=== PATIENT | female | born 1955 | race Caucasian/White ===

== ENCOUNTER → 2019-11-10 07:10 | Outpatient (CLI) | payer OTHER, MEDICAID, SELFPAY ==
[2019-11-10 08:02] LABS: Hemoglobin A1C% w Est Avg Glu 5.3 % (4.0-6.0)
[2019-11-10 08:04] LABS: Add Manual Diff / Slide Review NO; Basophils Absolute Auto 0 /uL (0-100); Basophils Percent Auto 1.2 % (0-2); Eosinophils Absolute Auto 100 /uL (0-450); Eosinophils Percent Auto 3.1 % (2-4); Hematocrit 40.4 % (36-46); Hemoglobin 13.6 g/dL (12.0-16.0); Lymphocytes Absolute Auto 1700 /uL (1100-4500); Lymphocytes Percent Auto 43.3 % (25-40); Mean Corpuscular HGB Conc 33.7 % (30-36); Mean Corpuscular Hemoglobin 30.7 PG (26-34); Mean Corpuscular Volume 91.2 fL (80-100); Monocytes Absolute Auto 400 /uL (0-900); Monocytes Percent Auto 9.3 % (3-14); Neutrophils Absolute Auto 1700 /uL (1500-7000); Neutrophils Percent Auto 43.1 % (50-75); Platelet Count 192 X10^3/uL (150-400); Red Blood Cell Count 4.43 X10^6/uL (4.0-5.2); Red Cell Distribution Width 13.2 % (11.6-14.8)
[2019-11-10 08:32] LABS: Erythrocyte Sedimentation Rate 10 MM/HR (0-20)
[2019-11-10 08:35] LABS: BUN Creatinine Ratio 20.5 (6-22); Blood Urea Nitrogen 15 mg/dL (7-17); Calcium 9.8 mg/dL (8.4-10.2); Carbon Dioxide 25 mmol/L (22-32); Chloride 106 mmol/L (98-107); Estimated Glomerular Filt Rate > 60.0 mL/min (>60); Glucose 91 mg/dL (80-110); HEMOLYSIS < 15 (0-50); Potassium 4.2 mmol/L (3.4-5.1); Sodium 138 mmol/L (137-145)
== END ==
PROVIDERS: Referring Provider Orthopaedic Surgery Adult Reconstructive Orthopaedic Surgery; Visit Provider Orthopaedic Surgery Adult Reconstructive Orthopaedic Surgery
DX: Z01.818 Encounter for other preprocedural examination (principal); Z01.812 Encounter for preprocedural laboratory examination; R73.9 Hyperglycemia, unspecified
CPT/HCPCS: 36415; 80048; 83036; 85025; 85651; 93005; 93010

== ENCOUNTER → 2019-11-17 14:13 | Outpatient (CLI) | payer OTHER, MEDICAID, SELFPAY ==
[2019-11-19 01:00] LABS: COVID19 Sendout Not Detected (Not Detect)
== END ==
PROVIDERS: PCP Family Medicine; Visit Provider Nurse Practitioner
DX: Z01.812 Encounter for preprocedural laboratory examination (principal)
CPT/HCPCS: 87635

== ENCOUNTER 2019-11-20 12:47 | Inpatient (IN) | payer OTHER, MEDICAID, SELFPAY ==
[2019-11-15 08:39] VITALS: BMI 23.6
[2019-11-20] VITALS (15 sets, daily range): BP systolic 90–124; BP diastolic 55–76; PULSE 50–61; RESP 12–22; TEMP 36–36.6; O2SAT 94–100; BMI 22.8
--- NOTE | 2019-11-20 | DI.RAD.S_ITS ---
PROCEDURE: XR PELVIS 1-2V INDICATIONS: LEFT HIP, janelle to total TECHNIQUE: 1 view of the lower pelvis acquired. COMPARISON: [facility] CUAUHTEMOC Sheridan, XR PELVIS WITH LATERAL HIP LEFT, 09/22/2019, 8:51. FINDINGS: Bones: Patient is status post left hip arthroplasty revision, with hardware components in expected positions. The hip joint appears congruent. The visualized bony structures appear intact. Soft tissues: Overlying postoperative changes are noted. No suspicious soft tissue densities. IMPRESSION: Expected postsurgical change for left hip total arthroplasty. Dictated by: Andressa Pinon MD, PhD on 11/20/2019 at 18:45 Approved by: Andressa Pinon MD, PhD on 11/20/2019 at 18:45
[2019-11-20] MEDS: ACETAMINOPHEN 325 MG TABLET 975 MG PO (13:10)
[2019-11-20] MEDS: LACTATED RINGERS 1,000 ML 42 ML IV ×2 (13:11→16:35)
--- NOTE | 2019-11-20 14:19 | PM.PREOP ---
Pre-operative Note COVID-19 COVID-19 status: Negative Result date/Date tested (Pos, Neg/Pending): 11/17/19 Interval Note History & Physical reviewed/Exam performed by Physician: Yes Changes to H&P: No H&P completed within 30 days and has changed as indicated here:: Plan for conversion of left hemiathroplasty to total hip arthroplasty
[2019-11-20] MEDS: CEFAZOLIN 2 GM/100 ML FROZ.PIGGY IV ×2 (14:37→22:53)
--- NOTE | 2019-11-20 15:20 | SUR.OPER ---
Lateral on padded OR bed. Gel axillary roll. Arms secured on padded armboard with pillow supporting top arm. Padded hip positioner braces x4 - anterior and posterior chest and pelvis. Additional gel pad used anterior pelvis. Gel pad under bottom leg from knee to foot and secured with tape over sheet.
[2019-11-20] MEDS: TRANEXAMIC ACID 1,000 MG VIAL 2000 MG INJ ×2 (15:54→15:56)
[2019-11-20] MEDS: ROPIVACAINE 0.5% PF 5 MG/ML 20ML VIAL 60 ML INJ (15:59)
--- NOTE | 2019-11-20 17:43 | P.OP_ITS ---
Operative Date/Time/Diagnoses Date of procedure: 11/20/19 Time of procedure: 17:43 Pre-op diagnosis: failed left hip hemiarthroplasty Post-op diagnosis: same Procedure & Clinicians Procedure: conversion of left hip hemiarthroplasty to left total hip arthroplasty Same procedure as scheduled: Yes Indications: painful left hip hemiarthroplasty Surgeon: Francisco Robles Journeyman Lineman: Roxanne Aldana Anesthesia Type: General and MAC +/- Operative Notes Findings: left hip hemiarthroplasty with stable stem, absent cartilage at weight bearing portion of acetabulum Closure Type: non-primary Specimen(s): none sent Prosthetic devices, grafts, tissues, transplants, or devices: Niño and Nephew 56mm redapt cup 2x 25mm screws OR30 56mm OD, 44mm ID oxinium liner OR30 44mm OD, 28mm ID dual mobility liner Biolox 28mm +1.5 delta ceramic revision head Estimated Blood Loss (mL): 300 Procedure in detail: Patient was met in the preoperative holding area where the site and side of surgery were marked by MD. A discussion of the risks and benefits of surgery were discussed and informed consent was signed. All last minute questions were answered. Patient was then brought back in the operating room where she received a spinal anesthetic. She was then transferred onto the operating room table and placed in a right lateral decubitus position with all bony prominences well padded. The left lower extremity then prepped and draped in normal sterile fashion. Surgical time-out was performed verifying the site and side of surgery as well as the name of the patient. The old surgical incision was marked out and ellipsed out using 10. Blade. Electrocautery was used to gain hemostasis and dissect down to the level of ITB band and superior gluteal fascia. A osteotome was used to free up the adhesions overlying the ITB band. ID band was then incised using 10. Blade. The short external rotators had scarred down to the capsule as 1 sleeve. A L-shaped capsulotomy was performed taking down the short external rotators and the capsule as 1 sleeve. This was tagged with a FiberWire suture. A Cobra was placed underneath the gluteus medius and subsequently underneath the gluteus minimus to give good exposure. Copious scar was removed from around the femoral neck component. Once this occurred the hip was then dislocated the hemiarthroplasty head and sleeve was then removed from the trunnion using a bone tamp. Trunnion was in good condition. A osteotome was placed against the femur on the anterior cortex and used to released scar tissue from the anterior cortex of the femur. This gave better mobilization of the femur. A pocket was made anterior to the acetabulum at approximately the 11 o'clock position for placement of the stem in this pocket. The femur then shock in depth and this positions of the stem sat this pocket a curved Hohmann was then used to retract the femur anteriorly. Labrum was removed excess scar was also removed. The pulmonary our was removed giving good access to the floor the colloid fossa. We began reaming with a 48 mm Reamer up sizing by 2s until we got to 54 mm. We then reamed a 55 mm Reamer this had good fit and a 56 mm revision cup was selected due to the amount of sclerotic bone. The cup was provisionally placed and adjusted under fluoroscopic images. Two screws were then placed 25 mm in length. We began trialing initially with a standard poly and subsequent with a lateralized poly. She was stable in position of sleep and as well as flexion to about 90? with internal rotation to about 75?. We then trialed with a dual mobility which gave us a better approximation of her leg lengths as well as excellent stability and position of sleep as well as hip flexion 90? with internal rotation to about 80?. Trial components were removed Betadine solution was used to irrigate the wound this allowed to sit for 5 minutes prior to copious irrigation with normal saline. The 56 mm x 44 mm Oxinium liner was then selected and malleted into place. The 2 mobility polyethylene liner with a 20 mm revision ceramic head was press fit together this was then malleted onto the trunnion found to be stable. The hip was then reduced to final time. The capsule was repaired using a running Ethibond with a drill to drill hole to greater trochanter for 1 limb of the FiberWire suture as well as the 2nd limb of the FiberWire sutures through the abductor tendon. Local anesthetic was then injected followed by closure of the ITB band with a 1. Vicryl interrupted fashion followed by 1. Vicryl in running locking fashion the superior gluteal fascia followed by running fat layer stitch followed by 2 Vicryl in the subcutaneous layer followed by nathan on skin an Aquacel dressing. Complications: none Post-operative Condition: stable Disposition: PACU Plan for aftercare: WBAT LLE, posterior hip precautions, Lovenox 6 weeks
[2019-11-20 19:39] LABS: Add Manual Diff / Slide Review NO; Basophils Absolute Auto 0 /uL (0-100); Basophils Percent Auto 0.3 % (0-2); Eosinophils Absolute Auto 100 /uL (0-450); Eosinophils Percent Auto 0.5 % (2-4); Hematocrit 37.1 % (36-46); Hemoglobin 12.6 g/dL (12.0-16.0); Lymphocytes Absolute Auto 1400 /uL (1100-4500); Lymphocytes Percent Auto 10.3 % (25-40); Mean Corpuscular HGB Conc 33.9 % (30-36); Mean Corpuscular Hemoglobin 30.7 PG (26-34); Mean Corpuscular Volume 90.3 fL (80-100); Monocytes Absolute Auto 600 /uL (0-900); Monocytes Percent Auto 4.8 % (3-14); Neutrophils Absolute Auto 11200 /uL (1500-7000); Neutrophils Percent Auto 84.1 % (50-75); Platelet Count 180 X10^3/uL (150-400); Red Cell Distribution Width 12.8 % (11.6-14.8); White Blood Cell Count 13.3 X10^3/uL (4.5-11.0)
[2019-11-20] MEDS: LACTATED RINGERS 1,000 ML 125 ML IV (20:04)
[2019-11-20] MEDS: DOCUSATE 100 MG CAPSULE PO (20:56)
[2019-11-20] MEDS: ACETAMINOPHEN 325 MG TABLET 650 MG PO (21:15)
--- NOTE | 2019-11-20 21:38 | PC.NURSE ---
Admit/Evening SHift Note- Patient arrived to room via bed at 1840 from PACU. Admit questions done, medications and allergies reviewed, physoical assessemnt done, askin check done. dressing to left hip c/d/i. No complaints of pain or discomfort. PAtient reports slight nausea but declines any medications for nausea at this time. Oriented patient to bed and bed controls, room, bathroom, lights, phone, menu, and call brooke/tv remote. Safety measures in place. Patient agrees to call for assistance. bed alarm activated. call brooke and phone within reach. Will continue to monitor.
[2019-11-21] VITALS (10 sets, daily range): BP systolic 96–134; BP diastolic 53–78; PULSE 60–72; RESP 16–18; TEMP 36.7–37.3; O2SAT 90–100
[2019-11-21] MEDS: SODIUM CHLORIDE 0.9% 100 ML 500 ML IV (01:00)
[2019-11-21] MEDS: LACTATED RINGERS 1,000 ML 125 ML IV (01:23)
--- NOTE | 2019-11-21 03:49 | PC.NURSE ---
At approximately 0030, Pt experienced a syncopal episode while ambulating to the bathroom. Pt was returned to bed, vitals were assessed and her BP was found to be 71/32. Pt was diaphoretic and dizzy. Telemetry was placed on pt along with 2L O2 and her current fluids were run wide open. Subsequent blood pressure improved to 99/51. DrAbelardo city controller (Uyen Niño) was contacted and ordered a 500mL bolus of NS along with a 12 lead EKG due to the pt's prolonged QTc (0.514) Pt recovered quickly and rested comfortably for the reminder of shift. Q4 neuro checks remain WNL.
[2019-11-21] MEDS: ACETAMINOPHEN 325 MG TABLET 650 MG PO ×3 (04:26→21:21)
[2019-11-21 05:23] LABS: Hematocrit 34.4 % (36-46); Hemoglobin 11.8 g/dL (12.0-16.0)
[2019-11-21] MEDS: CEFAZOLIN 2 GM/100 ML FROZ.PIGGY IV (05:25)
[2019-11-21] MEDS: LEVOTHYROXINE 150 MCG TABLET PO (08:28)
[2019-11-21] MEDS: ENOXAPARIN 40 MG/0.4 ML SYRINGE SUBCUT (08:29)
[2019-11-21] MEDS: DOCUSATE 100 MG CAPSULE PO ×2 (08:29→21:21)
--- NOTE | 2019-11-21 09:19 | CM.DANOTE ---
Addendum entered by Aileen Dixon LPN 11/21/19 12:13: Met with pt after review of PT Mayelin's note. She confirms that her partner Dayo will be available to help her after d/c. Pt's PT session was cut short due to episode of lightheadedness and low BP but both pt and PT anticipate that she will do fine in the home setting once medically stable for same. Pt confirms PCP: Dr. Le, she will be seeing him for the first time in January. P: DCP team to follow prn. Expect at this time: home when stable for same. Addendum entered by Aileen Dixon LPN 11/21/19 09:29: Surgery: for a failed L hemiarthroplasty 2017 and now a total hip replacement. Original Note: Discharge Planning/Care Management DCP: assessment: case received, EMR reviewed. DC order noted with comment of when cleared by PT. PT has not yet worked with pt. Pt is a 64 year old female who admitted yesterday for a scheduled L MONIK. Payer: [facility] Admission status: INPT: confirmed by KHRIS Crouch Pt's pre-op plan states that pt does live with a significant other Jesu: [phone] and does plan for a d/c to home setting when stable for same. 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 CM Discharge Assessment Start: 11/21/19 09:15 Freq: Status: Active Protocol: Document 11/21/19 09:18 ITV (Rec: 11/21/19 09:19 ITV [id number]) Discharge Planning Assessment Advance Directives? No Advance Directives on File Yes History Provided By Medical Record Has Patient been admitted in last 30 No days? 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 Patient Information Reviewed Via Phone Assessment Assessment Completed With Patient Diagnostic Results BMP/CMP,CBC,EKG Comment Labs/EKG @ 11/10/19 - COVID screen @ 11/17/19 Primary Care Provider Justin Le Seen Specialist in Last 12 Months Yes Specialist Seen Orthopedist Primary Language Maltese Candlemaker Required No Height 180.34 cm Weight 76.657 kg Body Mass Index (BMI) 23.6 Visual Assist Glasses Dentition Type Teeth, Natural Present Barriers to Learning None Hx Anesthesia Reactions No Hx Family Anesthesia Reaction No Hx Malignant Hyperthermia No Hx Blood Transfusions No Anesthesia Review Requested No alcohol intake current alcohol intake frequency holidays/special occasions only Smoking Status Never smoker Substance Use Type does not use Pain Present Pain Reported Musculoskeletal Symptoms Abnormal Gait,Difficulty Walking,Joint Pain History of Falling (Recent or History of Yes ) Patient is completely paralyzed or No completely immobile Prosthesis or Orthotic Device Cane Mental Status Oriented to own ability Is patient on oxygen? No Does patient have CHRISTIE/SOB No Hx Sleep Apnea No Currently Taking a Beta Marilee No Can You Climb a Flight of Stairs Without Yes SOB Hx Chest Pain No Hx SOB No Hx Syncope or Dizziness No Anti-Coagulant Therapy No Has a Resolution Expert No Cardiac Testing No Hx Pacemaker/ICD No Pacemaker Rep Required? No Cardiac Clearance Received Not Applicable Diet Type At Home Gluten Free dysphagia No Urinary Catheter Present No Hx Urinary Self Catheterization No Diabetes No HgbA1C 5.3 Date 11/10/19 Patient No Lactating No Hx Drug Resistant Organism No Presence of External or Internal Medical Yes: Left hip hardware Devices Have you had any close contact with No someone diagnosed with COVID-19? Marital Status Single Lives With significant other Prior Living Arrangements House Number of Floors (Floors) One Floor Support System Friend(s),Spouse Does the Patient Have Assistance After Yes Surgery Patient Discharge Plan Description Return Home Comment Pt not advised on length of stay per surgeon Feels Safe in Current Environment Yes Been Physically Hurt or Threatened By a No Person in Current Environment Do you have thoughts of harming yourself None or others? Are you currently considering suicide? No Do you have a plan to hurt yourself or No Plan others? Do You Have Any Spiritual Beliefs That No May Affect Your HC Choices? Do You Have Any Cultural Practices That No May Affect Your HC Choices? Who Can We Speak to About Patient's Care Family, friends Identifying Code for Release of Patient Declines to issue Information Health Care Proxy/Next of Kin Dayo (S.O.) Allison (sister) Health Care Proxy Phone Number Jesu: [phone] Allison: [phone] Emergency Contact Name Dayo (S.O.) Allison (sister) Emergency Contact Phone Number Jesu: [phone] Allison: Advance Directives? Yes Advance Directives on File Yes Power of Transition Manager Yes Power of Transition Manager Name Dayo (S.O.) Allison (sister) Power of Transition Manager Phone Number [facility]: [phone] Allison: PAC Instructions Do not shave/clip surgical site,Durable medical equipment ,Medications to take/avoid, Nasal antibiotic,No ETOH/ petroleum product on skin DOS, NPO,Pre-surgical wash,Sturdy shoes/comfortable clothes,Do not bring valuables and remove jewelry
--- NOTE | 2019-11-21 10:24 | PT.IIE ---
Current Diagnoses Pain due to internal orthopedic prosthetic devices, implants and grafts, initial encounter (11/20/19) Surgery Performed Operation Date: 11/20/19 14:15 Actual Procedures p Christiano hip to Total Hip Arthroplasty(Left) - Francisco Robles MD Surgical History (Last Updated 11/16/19 @ 21:29 by Blanka Olmstead) Anesthesia (Resolved) History of left hip hemiarthroplasty (Acute 06/12/17) Hx of tonsillectomy (Acute ~1961) Medical History (Last Updated 11/16/19 @ 21:29 by Blanka Olmstead) Ankle pain (Chronic) Chicken pox (Resolved) Herpes (Resolved ~1995) Hx of migraine headaches (Acute) Left hip pain (Chronic ~03/2019) Measles (Resolved) Migraines (Chronic ~1978) Mumps (Resolved) Plantar warts (Inactive ~2013) Shoulder pain (Inactive ~1995) Wears glasses (Chronic) Physical Therapy Inpatient Evaluation/Re-Eval M1 PT/OT-IP Prior Functional Status Start: 11/21/19 08:36 Freq: NEEDED Status: Active Protocol: Document 11/21/19 10:06 AW (Rec: 11/21/19 10:24 AW [id number]) Medical Review Prior Functional Status Medical History Reviewed Yes Communication WNL. Pt is an effective verbal communicator. 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 Mobility and Gait Pt was able to walk 10 minutes without a cane in the past few months. She is an avid hiker at baseline. Activities of Daily Living and IADL's Indpendent Social History Household Members significant other Living Arrangements House Number of Floors (Floors) One Floor Number of Stairs To Enter/Railing? 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 Her partner is able and will be available to assist after surgery. M2 PT-IP Current Condition Start: 11/21/19 08:36 Freq: NEEDED Status: Active Protocol: Document 11/21/19 10:06 AW (Rec: 11/21/19 10:24 AW [id number]) Physical Therapy Current Condition Current Condition Evaluation Date 11/21/19 Treatment Diagnosis L MONIK with posterior approach; difficulty in walking Onset Date 11/20/19 Precautions Posterior Hip Precautions No Hip Flexion > 90 degrees,No Hip Internal Rotation,No Hip Adduction M3 PT-IP Subjective Start: 11/21/19 08:36 Freq: NEEDED Status: Active Protocol: Document 11/21/19 10:06 AW (Rec: 11/21/19 10:24 AW [id number]) Subjective Physical Therapy Visit Type Type Initial Evaluation Visit Start Time 09:17 Visit Stop Time 09:40 Total Visit Minutes 23 Physical Therapy Visit Comments Patient Comments Pt is willing to participate with PT Therapy Pain Assessment Pain When Pain Assessed At Rest Pain Present Pain Present Pain Reported Location Left Hip Intensity 6 Pain Management Techniques Re-positioning,Timing of Activity with Medications M4 PT-IP Mobility and Gait Start: 11/21/19 08:36 Freq: NEEDED Status: Active Protocol: Document 11/21/19 10:06 AW (Rec: 11/21/19 10:24 AW [id number]) PT-Transfer Assessment Sit to and From Stand Sit to and from Stand Contact Guard Assistance,Use of Upper Extremities Equipment Transfer Assistive Device Gait Belt,Front Wheeled Walker Transfers Transfer Destination Chair Transfer Technique Stand Step Pivot Transfer Ability Level of Assist Contact Guard Assistance,Use of Upper Extremities Comments Mobility Comments Pt was sitting on the BSC with HEAD PIECE ASSEMBLER when therapy arrived. BP sitting on the commode was 85/ 54 HR 70. Pt denied lightheadedness. She stood from the commode CGA using FWW and side stepped to the chair where she sat CGA with good attention to posterior hip precautions. BP after transfer was 107/58 HR 61. Pt sat reclined as PT collected home information. Pt stood from the chair CGA and immediately became pale and diaphoretic. PT was unable to obtain standing BP as pt needed to sit and recline immediately. BP sitting was 85/55 HR 63 which recovered to 98/57 HR 66 after 4 minutes reclined. Pt was positioned in the chair with call light and all needs in reach. PT notified RN of pt 's BP. Gait Assessment Comments Gait Comments Transfer only due to low BP. Stair Climbing Assessment Comments Stair Climbing Comments Not assessed. PT-Balance Assessment Sitting Balance and Reactions Static Sitting Balance Ability Normal Dynamic Sitting Balance Ability Normal Standing Balance and Reactions Static Standing Balance Ability Fair Device Used FWW M5 PT-IP Objective Assessments Start: 11/21/19 08:36 Freq: NEEDED Status: Active Protocol: Document 11/21/19 10:06 AW (Rec: 11/21/19 10:24 AW [id number]) Orientation Orientation/Cognition Level of Alertness Alert Orientation Name,Day of Week,Place, Situation Language Function Ability No Deficits Noted Safety Awareness Understands Safety Issues Memory Description No Deficits Noted Gross Range of Motion Lower Extremity ROM Assessment Left Impaired Strength Lower Extremity Strength Assessment Left Impaired Hip 3/5 Knee 4/5 Ankle 5/5 Comments Strength Comments R LE grossly 5/5 Coordination Assessment Gross Coordination Gross Coordination WNL Sensation Assessment Sensation Gross Sensation WNL Muscle Tone Muscle Tone WNL Yes M6 PT-IP Treatment Start: 11/21/19 08:36 Freq: NEEDED Status: Active Protocol: Document 11/21/19 10:06 AW (Rec: 11/21/19 10:24 AW [id number]) Physical Therapy Treatment Exercises Exercises Ankle Pumps,Gluteal Sets,Quad Sets,Heel Slides Education Education Provided Precautions,Weight Bearing Status,Post-Op Packet,Safety Other Treatments Other Treatment Performed Provided education on role of PT, plan of care, posterior hip precautions. Pt verbalizes understanding of all precautions. M7 PT-IP Assessment and Plan Start: 11/21/19 08:36 Freq: NEEDED Status: Active Protocol: Document 11/21/19 10:06 AW (Rec: 11/21/19 10:24 AW [id number]) PT Summary Assessment and Plan Potential Rehabilitation Potential Excellent Status of Condition at Evaluation Evolving Summary Impairments Pain,ROM,Strength,Balance,Bed Mobility,Transfers,Gait, Activity Tolerance Assessment Summary Blanka is an active 64 yo woman seen for PT evaluation on POD1 following L MONIK with posterior approach. She is modified indepenent at baseline with use of a cane after ~10 minutes ambulation. Evaluation was limited due to pt's hemodynamic response to minimal activity. Pt is expected to meet the functional goals of this plan of care and be safe to discharge home with assist and outpatient PT once medically cleared. Goals Bed Mobility Goal Standby Assistance Transfer Goal Standby Assistance,Front Wheeled Walker Gait Goal Standby Assistance,Front Wheel Walker Gait Distance 200 Other Goals - up/down 2 steps with L rail SBA Days to Meet Goals 2 Frequency of Treatment Frequency Of Treatment Twice a Day Treatment Plan Physical Therapy Treatment Plan Bed Mobility Training,Transfer Training,Gait Training, Therapeutic Exercise,Balance Retraining,Post Op Education, Discharge Planning,Hot or Cold Pack,Neuromuscular Re-ed, Coordination Retraining,Manual Therapy Recommendations To Nursing Amount of Assist Needed 1 Person Assist Discharge Recommendations PT Discharge Recommendations Home with Assistance, Outpatient PT Transportation Needs at Discharge Private Vehicle
--- NOTE | 2019-11-21 13:44 | PT.IPTN ---
Current Diagnoses Pain due to internal orthopedic prosthetic devices, implants and grafts, initial encounter (11/20/19) Surgery Performed Operation Date: 11/20/19 14:15 Actual Procedures p Christiano hip to Total Hip Arthroplasty(Left) - Francisco Robles MD Physical Therapy Treatment Note M2 PT-IP Current Condition Start: 11/21/19 08:36 Freq: NEEDED Status: Active Protocol: Document 11/21/19 10:06 AW (Rec: 11/21/19 10:24 AW [id number]) Physical Therapy Current Condition Current Condition Evaluation Date 11/21/19 Treatment Diagnosis L MONIK with posterior approach; difficulty in walking Onset Date 11/20/19 Precautions Posterior Hip Precautions No Hip Flexion > 90 degrees,No Hip Internal Rotation,No Hip Adduction M3 PT-IP Subjective Start: 11/21/19 08:36 Freq: NEEDED Status: Active Protocol: Document 11/21/19 13:09 CLB (Rec: 11/21/19 16:23 CLB [id number]) Subjective Physical Therapy Visit Type Type Treatment Note Visit Start Time 13:09 Visit Stop Time 13:44 Total Visit Minutes 35 Number of SERVICE CASHIER Visits 1 Physical Therapy Visit Comments Patient Comments Pt is willing to participate with PT Therapy Pain Assessment Pain When Pain Assessed At Rest Pain Present Pain Present Pain Reported Location Left Hip Intensity 5 Pain Management Techniques Re-positioning,Timing of Activity with Medications M4 PT-IP Mobility and Gait Start: 11/21/19 08:36 Freq: NEEDED Status: Active Protocol: Document 11/21/19 13:09 CLB (Rec: 11/21/19 16:23 CLB [id number]) PT-Transfer Assessment Sit to and From Stand Sit to and from Stand Contact Guard Assistance,Use of Upper Extremities Equipment Transfer Assistive Device Gait Belt,Front Wheeled Walker Transfers Transfer Destination Chair Transfer Technique Stand Step Pivot Transfer Ability Level of Assist Contact Guard Assistance,Use of Upper Extremities Comments Mobility Comments Pt in chair upon arrival. Pt BP in sitting 117/65, HR 68. Pt stood CGA BP in standing 90 /55, HR 83 pt denied dizziness or lightheadedness, pt agreeabe to ambulate with WC follow. Pt ambulated in reina ~ 200ft w/FWW/CGA with step to gait step through gait pattern and cues not to get too close to from of walker, pt able to correct with cuing. Once back in room pt stated she felt fatigued, BP in standing after activity 85/54, HR 81, pt sat in chair and reclined to supine position, BP after 2 minutes BP 108/56, HR 62. Pt performed HS, QS, GS and hip abd. Pt left in reclined chair with call light and all other needs within reach. RN informed of pts BP and mobility. Gait Assessment Gait Gait Assistance Required: Contact Guard Assist,1 Person Assist Distance (Feet) 200 Able to Maintain Weight Bearing Status Yes During Gait Assistive Devices Assistive Device Gait Belt,Front Wheeled Walker Orthotic/Prosthetic Devices or Brace: No Gait Deviations General Gait Pattern Antalgic,Decreased Stride Length,Decreased Feet Clearance Factors Limiting Gait Function Factors Limiting Gait Function Decreased Activity Tolerance, Decreased Strength,Limited Range of Motion,Pain,Poor Balance Comments Gait Comments please see mobility comments Stair Climbing Assessment Comments Stair Climbing Comments Not assessed. PT-Balance Assessment Sitting Balance and Reactions Static Sitting Balance Ability Normal Dynamic Sitting Balance Ability Normal Standing Balance and Reactions Static Standing Balance Ability Fair Device Used FWW M5 PT-IP Objective Assessments Start: 11/21/19 08:36 Freq: NEEDED Status: Active Protocol: Document 11/21/19 10:06 AW (Rec: 11/21/19 10:24 AW [id number]) Orientation Orientation/Cognition Level of Alertness Alert Orientation Name,Day of Week,Place, Situation Language Function Ability No Deficits Noted Safety Awareness Understands Safety Issues Memory Description No Deficits Noted Gross Range of Motion Lower Extremity ROM Assessment Left Impaired Strength Lower Extremity Strength Assessment Left Impaired Hip 3/5 Knee 4/5 Ankle 5/5 Comments Strength Comments R LE grossly 5/5 Coordination Assessment Gross Coordination Gross Coordination WNL Sensation Assessment Sensation Gross Sensation WNL Muscle Tone Muscle Tone WNL Yes M6 PT-IP Treatment Start: 11/21/19 08:36 Freq: NEEDED Status: Active Protocol: Document 11/21/19 13:09 CLB (Rec: 11/21/19 16:23 CLB [id number]) Physical Therapy Treatment Exercises Exercises Ankle Pumps,Gluteal Sets,Quad Sets,Heel Slides Education Education Provided Precautions,Weight Bearing Status,Post-Op Packet,Safety Other Treatments Other Treatment Performed pt recalled 3/3 precautions M7 PT-IP Assessment and Plan Start: 11/21/19 08:36 Freq: NEEDED Status: Active Protocol: Document 07/21/20 13:09 CLB (Rec: 11/21/19 16:23 CLB [id number]) PT Summary Assessment and Plan Potential Status of Condition at Evaluation Evolving Summary Impairments Pain,ROM,Strength,Balance,Bed Mobility,Transfers,Gait, Activity Tolerance Assessment Summary Pt ambulated ~200ft with decrease in BP after activity with minor complaint of lightheadedness. Pt is able to recall 3/3 posterior hip precautions and perform theraputic exercises. Pt uses a small step through gait pattern requiring cues for walker use. Pt will need stair training before discharge. Goals Bed Mobility Goal Standby Assistance Transfer Goal Standby Assistance,Front Wheeled Walker Gait Goal Standby Assistance,Front Wheel Walker Gait Distance 200 Other Goals - up/down 2 steps with L rail SBA Days to Meet Goals 2 Frequency of Treatment Frequency Of Treatment Twice a Day Treatment Plan Physical Therapy Treatment Plan Bed Mobility Training,Transfer Training,Gait Training, Therapeutic Exercise,Balance Retraining,Post Op Education, Discharge Planning,Hot or Cold Pack,Neuromuscular Re-ed, Coordination Retraining,Manual Therapy Other Recommendations and Next Treatment monitor BP, ambulation, bed Focus mobility and stair training. Recommendations To Nursing Amount of Assist Needed 1 Person Assist Discharge Recommendations PT Discharge Recommendations Home with Assistance, Outpatient PT Transportation Needs at Discharge Private Vehicle
--- NOTE | 2019-11-21 14:43 | PM.PN.1 ---
Subjective Subjective Date Patient Seen: 11/21/19 Time Patient Seen: 14:43 Interval history: Patient is POD#1 from conversion of left hip hemiarthroplasty to total hip arthroplasty. Overall doing well. Lightheaded with PT Exam Vital Signs (past 8 hours): - 11/21/19 07:37 11/21/19 09:08 11/21/19 11:40 Temperature 98.2 F 98.0 F Pulse Rate 66 63 64 Respiratory Rate 16 16 16 Blood Pressure 110/53 L 96/59 L Pulse Oximetry 96 99 95 Oxygen Delivery Method Room Air Oxygen Flow Rate 0 Narrative Exam Narrative: NV intact LLE, dressing c/d/i Objective Labs Result Diagrams: 11/21/19 04:45 Labs: Laboratory Results - last 24 hr 11/20/19 11/21/19 19:29 04:45 WBC 13.3 H RBC 4.10 Hgb 12.6 11.8 L Hct 37.1 34.4 L MCV 90.3 MCH 30.7 MCHC 33.9 RDW 12.8 Plt Count 180 Neut % (Auto) 84.1 H Lymph % (Auto) 10.3 L [place] % (Auto) 4.8 Eos % (Auto) 0.5 L Baso % (Auto) 0.3 Neut # (Auto) 61346 H Lymph # (Auto) 1400 [place] # (Auto) 600 Eos # (Auto) 100 Baso # (Auto) 0 Assessment & Plan Assessment & Plan narrative: Patient is POD#1 from conversion of left hip hemiarthroplasty to total hip arthroplasty. Patient has not yet cleared PT (stairs) due to lightheadedness. - continue PT - Posterior hip precautions - WBAT LLE - Lovenox 40mg subQ for DVT prophylaxis Quality VTE Deep Vein Thrombosis/Pulmonary Embolism Present on Admission: No
--- NOTE | 2019-11-21 14:48 | PC.NURSE ---
Day shift note: Patient up out of bed with PT, 1PA FWW, ambulating well in hallway, however noted with dizziness 2-4 minutes after ambulating. Hypotension noted standing, Recovers at rest. Has not done stair training due to symptom. Excellent PO intake, voided 1400ml this shift. Encouraging fluids. Notified Dr. Robles.
[2019-11-22] VITALS: BP 111/57; PULSE 65; RESP 16; TEMP 36.8; O2SAT 98
[2019-11-22] MEDS: TRAMADOL 50 MG TABLET PO (00:28)
[2019-11-22] MEDS: OXYCODONE IR 5 MG TABLET PO ×2 (01:54→09:16)
[2019-11-22 06:00] VITALS: BP 103/56; PULSE 60; RESP 18; TEMP 37.1; O2SAT 98
[2019-11-22] MEDS: ACETAMINOPHEN 325 MG TABLET 650 MG PO ×2 (06:01→11:50)
[2019-11-22] MEDS: LEVOTHYROXINE 150 MCG TABLET PO (07:48)
[2019-11-22] MEDS: ENOXAPARIN 40 MG/0.4 ML SYRINGE SUBCUT (07:50)
--- NOTE | 2019-11-22 07:50 | PM.PN.1 ---
Subjective Subjective Date Patient Seen: 11/22/19 Time Patient Seen: 07:50 Interval history: Patient is POD#2 from conversion of left hip hemiarthroplasty to total hip arthroplasty. Overall doing well. Lightheaded with PT Exam Vital Signs (past 8 hours): - 11/22/19 00:00 11/22/19 06:00 Temperature 98.2 F 98.8 F Pulse Rate 65 60 Respiratory Rate 16 18 Blood Pressure 111/57 L 103/56 L Pulse Oximetry 98 98 Oxygen Delivery Method Room Air Oxygen Flow Rate 0 Narrative Exam Narrative: NV intact LLE, Dressing c/d/i Objective Labs Result Diagrams: 11/21/19 04:45 Assessment & Plan Assessment & Plan narrative: Patient is POD#2 from conversion of left hip hemiarthroplasty to total hip arthroplasty. Patient has not yet cleared PT (stairs) due to lightheadedness. - continue PT - Posterior hip precautions - WBAT LLE - Lovenox 40mg subQ for DVT prophylaxis Time Spent With Patient Time with patient: less than 15 minutes Quality VTE Deep Vein Thrombosis/Pulmonary Embolism Present on Admission: No
[2019-11-22] MEDS: DOCUSATE 100 MG CAPSULE PO (07:51)
--- NOTE | 2019-11-22 07:51 | PM.DS.1 ---
History of Present Illness History of Present Illness Date Patient Seen: 11/22/19 Time Patient Seen: 07:51 Chief complaint: LT MONIK Narrative: Now POD#2 from conversion of hemiarthropalsty to left MONIK Discharge Providers Provider Date of admission: 11/20/19 12:47 Discharge Date: 11/22/19 Primary care physician: Justin Le DO Consults: 11/20/19 07:53 Consult to Anesthesiology Routine Comment: Consulting Provider: Anesthesiologist Reason for consultation: Regional block for post operative pain control 11/20/19 18:43 Consult to Discharge Planning Routine Comment: Consult to Physical Therapy Evaluate & Treat Comment: Physician Instructions: post op MONIK protocol Consult to Respiratory Therapy Evaluate & Treat Comment: Physician Instructions: Evaluate and treat Discharge provider: Francisco Robles MD Summary Hospital Course Discharge Diagnosis: s/p conversion of hemiarthroplasty to MONIK Hospital Course: Admitted for conversion of janelle to MONIK. Now POD#2. Post-op PT course slowed due to lightheadedness while working with PT. Otherwise doing well. Status at Discharge Cognitive/behavioral status at discharge: oriented Overall status at discharge: patient is progressing back to baseline Time Spent with Patient Time spent: Less than 30 minutes Exam Vital Signs (past 8 hours): - 11/22/19 00:00 11/22/19 06:00 Temperature 98.2 F 98.8 F Pulse Rate 65 60 Respiratory Rate 16 18 Blood Pressure 111/57 L 103/56 L Pulse Oximetry 98 98 Oxygen Delivery Method Room Air Oxygen Flow Rate 0 Narrative Exam Narrative: NV intact LLE. Dressing c/d/i Objective Labs Result Diagrams: 11/21/19 04:45 Discharge Assessment & Plan Assessment and Plan Assessment: Patient is POD#2 from conversion of left janelle to MONIK. Doing well Plan of Treatment: DC home when cleared by PT Discharge Plan Discharge Plan Patient Disposition: Home Discharge comment: DC when cleared by PT Discharge orders & Medications Prescriptions: Continued levothyroxine 112 MCG tablet 150 mcg PO DAILY Qty: 0 RF: 0 sumatriptan succinate [Imitrex] 25 MG tablet 50 mg PO PRN MDD 4 tabs daily PRN (Reason: Migraine Headache) Qty: 0 RF: 0 Follow up/Referrals: Francisco Robles MD [Physician] - 2 Weeks Justin Le DO [Primary Care Provider] - Diet/Activity/Treatments Diet: Regular Activity: WBAT LLE, posterior hip precautions Cold/Heat Therapy: ICE as needed to control pain and swelling. Place a towel between ice and skin to avoid johnson Other treatments: Take Lovenox as prescribed for 6 weeks Skin/Wound/Dressing Care Dressing: Leave dressing in place until you are seen at your first post-op appointment Other wound treatment: OK to shower over your dressing. Do not soak (bathe). Visit Report/Discharge Packet Instructions: DI for Hip Replacement, DI for Prescription Opioid Use Visit Report Forms: Patient Portal/API, Stroke Signs & Symptoms Discharge Data Primary Care Provider: Justin Le VTE Deep Vein Thrombosis/Pulmonary Embolism Present on Admission: No
[2019-11-22 07:55] VITALS: BP 119/62; PULSE 60; RESP 18; TEMP 36.8; O2SAT 99
--- NOTE | 2019-11-22 09:44 | PT.IPTN ---
Current Diagnoses Pain due to internal orthopedic prosthetic devices, implants and grafts, initial encounter (11/20/19) Surgery Performed Operation Date: 11/20/19 14:15 Actual Procedures p Christiano hip to Total Hip Arthroplasty(Left) - Francisco Robles MD Physical Therapy Treatment Note M2 PT-IP Current Condition Start: 11/21/19 08:36 Freq: NEEDED Status: Discharge Protocol: Document 11/21/19 10:06 AW (Rec: 11/21/19 10:24 AW [id number]) Physical Therapy Current Condition Current Condition Evaluation Date 11/21/19 Treatment Diagnosis L MONIK with posterior approach; difficulty in walking Onset Date 11/20/19 Precautions Posterior Hip Precautions No Hip Flexion > 90 degrees,No Hip Internal Rotation,No Hip Adduction M3 PT-IP Subjective Start: 11/21/19 08:36 Freq: NEEDED Status: Discharge Protocol: Document 11/22/19 09:18 TP (Rec: 11/22/19 13:46 TP [email or web address]) Subjective Physical Therapy Visit Type Type Treatment Note Visit Start Time 09:18 Visit Stop Time 09:44 Total Visit Minutes 26 Notes MACHINE ASSEMBLER SUPERVISOR Shawna and student MACHINE ASSEMBLER SUPERVISOR Evonne present for tx. Number of MACHINE ASSEMBLER SUPERVISOR Visits 2 Physical Therapy Visit Comments Patient Comments Pt is willing to participate with PT Therapy Pain Assessment Pain When Pain Assessed At Rest Pain Present Pain Present Denied Pain M4 PT-IP Mobility and Gait Start: 11/21/19 08:36 Freq: NEEDED Status: Discharge Protocol: Document 11/22/19 09:18 TP (Rec: 11/22/19 13:46 TP [email or web address]) PT-Bed Mobility Assessment Sit to Supine Sit to Supine Independent Scooting Scooting to Edge of Bed Independent PT-Transfer Assessment Sit to and From Stand Sit to and from Stand Standby Assistance,Use of Upper Extremities Equipment Transfer Assistive Device Gait Belt,Front Wheeled Walker Orthotic/Prosthetic Devices or Brace: No Transfers Transfer Destination Bed,Chair Transfer Technique Stand Step Pivot Transfer Ability Level of Assist Standby Assistance,Use of Upper Extremities Comments Mobility Comments Pt in chair upon arrival. Denied pain and lightheadedness. Pt gave verbal description of hip precautions for posterior approach, with good understanding. Transfer from sit<>stand using FWW SBA, no verbal cues needed to maintain precuations. Pt ambulation into hallway and to stairs, approximately 200ft with FWW CGA. Verbal cues needed for flexion of L knee and use of step through gait pattern. Pt education for proper use of SPC ascending and descending stairs. Ascended and descended 3 stairs with with L handrail and SPC in R hand. Ambulation to return to room approximately 200ft with FWW SBA, total of 400ft without a seated rest using FWW. FWW lowered one position to improve posture. Pt performed sit<>stand at chair FWW SBA. Pt demonstrated step pivot transfer while maintaining hip precautions to sit at EOB, FWW SBA. Sit to supine performed independently. Ther ex in supine: B ankle pumps x 10, quad sets x 5, glute sets x 5, heel slides x 5. Education for use of gait belt looped around L foot to provide assistance in mobilizing left leg, particularly for hip abduction exercises and moving from supine to sit. Pt ambulated to chair with FWW SBA and performed sit<>stand. Pt requested a grabber for use at home to pick things up off the floor while maintaining hip flexion precautions. Pt reclined in chair with ice on L hip, call light in reach, and all needs met at completion of tx. Nursing notified of pt's condition and desire to shower. Gait Assessment Gait Gait Assistance Required: Standby Assistance,1 Person Assist Distance (Feet) 400 Able to Maintain Weight Bearing Status Yes During Gait Assistive Devices Assistive Device Gait Belt,Front Wheeled Walker Orthotic/Prosthetic Devices or Brace: No Gait Deviations General Gait Pattern Antalgic,Decreased Stride Length,Decreased Feet Clearance Factors Limiting Gait Function Factors Limiting Gait Function Decreased Activity Tolerance, Decreased Strength,Limited Range of Motion,Pain,Poor Balance Comments Gait Comments See mobility comments. Pt able to ambulate approximately 400ft with FWW SBA with verbal cues intially for step through gait pattern. Stair Climbing Assessment Evaluation Level of Assist On Stairs Contact Guard Assistance,1 Person Assistance Devices Stair Climbing Assistive Devices Straight Cane Technique/Endurance Stair Climbing Direction Ascend and Descend Stair Climbing Technique Step to Step Number of Steps Climbed 3 Stair Climbing Set # Repetitions (reps) 1 Comments Stair Climbing Comments See mobility comments. Pt ascended and descended 3 steps with use of L handrail and SPC in R hand. Education provided for use of SPC on stairs. Pt demonstrated good understanding. PT-Balance Assessment Sitting Balance and Reactions Static Sitting Balance Ability Normal Dynamic Sitting Balance Ability Normal Standing Balance and Reactions Static Standing Balance Ability Good Device Used FWW M5 PT-IP Objective Assessments Start: 11/21/19 08:36 Freq: NEEDED Status: Discharge Protocol: Document 11/21/19 10:06 AW (Rec: 11/21/19 10:24 AW [id number]) Orientation Orientation/Cognition Level of Alertness Alert Orientation Name,Day of Week,Place, Situation Language Function Ability No Deficits Noted Safety Awareness Understands Safety Issues Memory Description No Deficits Noted Gross Range of Motion Lower Extremity ROM Assessment Left Impaired Strength Lower Extremity Strength Assessment Left Impaired Hip 3/5 Knee 4/5 Ankle 5/5 Comments Strength Comments R LE grossly 5/5 Coordination Assessment Gross Coordination Gross Coordination WNL Sensation Assessment Sensation Gross Sensation WNL Muscle Tone Muscle Tone WNL Yes M6 PT-IP Treatment Start: 11/21/19 08:36 Freq: NEEDED Status: Discharge Protocol: Document 11/22/19 09:18 TP (Rec: 11/22/19 13:46 TP [email or web address]) Physical Therapy Treatment Exercises Exercises Ankle Pumps,Gluteal Sets,Quad Sets,Heel Slides Education Education Provided Precautions,Weight Bearing Status,Post-Op Packet,Safety Other Treatments Other Treatment Performed Pt recalled 3/3 precautions. Dispensed grabber for use at home to maintain hip precautions while retrieving items on floor. M7 PT-IP Assessment and Plan Start: 11/21/19 08:36 Freq: NEEDED Status: Discharge Protocol: Document 11/22/19 09:18 TP (Rec: 11/22/19 13:46 TP [id number]) PT Summary Assessment and Plan Potential Rehabilitation Potential Excellent Status of Condition at Evaluation Evolving Summary Impairments Pain,ROM,Strength,Balance,Bed Mobility,Transfers,Gait, Activity Tolerance Assessment Summary Pt ambulated ~400ft without pain or lightheadedness. Pt improved gait pattern to step through with use of FWW SBA. Pt demonstrates good recall and understanding of hip precautions, including during turns and pivots while ambulating. Pt able to complete all bed mobility and ther ex independently. Pt is ready to discharge home with assistance and recommending outpatient PT. Goals Bed Mobility Goal Standby Assistance Transfer Goal Standby Assistance,Front Wheeled Walker Gait Goal Standby Assistance,Front Wheel Walker Gait Distance 200 Other Goals - up/down 2 steps with L rail SBA Days to Meet Goals 2 Frequency of Treatment Frequency Of Treatment Twice a Day Treatment Plan Physical Therapy Treatment Plan Bed Mobility Training,Transfer Training,Gait Training, Therapeutic Exercise,Balance Retraining,Post Op Education, Discharge Planning,Hot or Cold Pack,Neuromuscular Re-ed, Coordination Retraining,Manual Therapy Other Recommendations and Next Treatment Pt is ready to discharge home Focus with assistance and recommending outpatient PT. Recommendations To Nursing Amount of Assist Needed Standby Assistance Discharge Recommendations PT Discharge Recommendations Home with Assistance, Outpatient PT Transportation Needs at Discharge Private Vehicle
--- NOTE | 2019-11-22 11:51 | PC.NURSE ---
Pt is showered and dressed and ready for discharge home with Spouse who will be here at 1300. Went over d/c instructions-discussed d/c meds, reviewed Lovenox injection technique, stroke education, posterior hip precautions and follow up. Gave Pt Tylenol for pain. Encouraged fluid intake to prevent constipation or dehydration. Pt denies further questions and will be taken out to POV via w/c when spouse arrives.
== END 2019-11-22 13:25 | disposition home or self-care (01) | DRG 301 ==
PROVIDERS: Admitting Provider Orthopaedic Surgery Adult Reconstructive Orthopaedic Surgery; PCP Family Medicine; Referring Provider Family Medicine; Visit Provider Orthopaedic Surgery Adult Reconstructive Orthopaedic Surgery
PROC: 0SRB0JZ Replacement of Left Hip Joint with Synthetic Substitute, Open Approach (ICD-10-PCS; CPT 27130; principal; 2019-11-20 14:15)
DX: T84.091A Other mechanical complication of internal left hip prosthesis, initial encounter (principal); T84.84XA Pain due to internal orthopedic prosthetic devices, implants and grafts, initial encounter; R42 Dizziness and giddiness
CPT/HCPCS: 36415; 72170; 76000; 85014; 85018; 85025; 93005; 94760; 97110; 97116; 97161; 97530; C1776; J0690; J1650; J2250; J2704; J3010

== ENCOUNTER → 2020-01-23 07:17 | Outpatient (CLI) | payer OTHER, MEDICAID, SELFPAY ==
[2019-11-20 13:03] VITALS: BMI 22.8
[2020-01-23 09:05] LABS: Add Manual Diff / Slide Review NO; Basophils Absolute Auto 0 /uL (0-100); Basophils Percent Auto 1.1 % (0-2); Eosinophils Absolute Auto 200 /uL (0-450); Eosinophils Percent Auto 3.9 % (2-4); Hematocrit 40.8 % (36-46); Hemoglobin 13.8 g/dL (12.0-16.0); Lymphocytes Absolute Auto 1700 /uL (1100-4500); Mean Corpuscular Hemoglobin 30.6 PG (26-34); Mean Corpuscular Volume 90.2 fL (80-100); Monocytes Absolute Auto 300 /uL (0-900); Neutrophils Absolute Auto 1900 /uL (1500-7000); Platelet Count 187 X10^3/uL (150-400); Red Blood Cell Count 4.52 X10^6/uL (4.0-5.2); Red Cell Distribution Width 13.3 % (11.6-14.8); White Blood Cell Count 4.1 X10^3/uL (4.5-11.0)
[2020-01-23 09:13] LABS: Fibrinogen 275 mg/dL (211-428)
[2020-01-23 09:21] LABS: Alanine Aminotransferase 29 IU/L (<35); Albumin 4.4 g/dL (3.5-5.0); Albumin Globulin Ratio 1.6 (1.0-2.8); Alkaline Phosphatase 72 U/L (38-126); Aspartate Aminotransferase 32 IU/L (14-36); BUN Creatinine Ratio 22.2 (6-22); Bilirubin Total 0.7 mg/dL (0.2-1.3); Blood Urea Nitrogen 16 mg/dL (7-17); Calcium 9.6 mg/dL (8.4-10.2); Carbon Dioxide 28 mmol/L (22-32); Chloride 107 mmol/L (98-107); Cholesterol 239 mg/dL (140-199); Estimated Glomerular Filt Rate > 60.0 mL/min (>60); Globulin 2.8 g/dL (1.7-4.1); Glucose 86 mg/dL (80-110); HDL Cholesterol 62 mg/dL (40-60); HEMOLYSIS < 15 (0-50); LDL Cholesterol Calculated 163 mg/dL (<100); Potassium 4.5 mmol/L (3.4-5.1); Sodium 142 mmol/L (137-145); Total Protein 7.2 g/dL (6.3-8.2); Triglycerides 70 mg/dL (35-150)
[2020-01-23 09:24] LABS: C-Reactive Protein Quant < 0.5 mg/dL (<1.0)
[2020-01-23 09:37] LABS: Free T3, Triiodothyronine Free 3.08 pg/mL (2.77-5.27)
[2020-01-23 09:50] LABS: Thyroid Stimulating Hormone 1.22 uIU/mL (0.47-4.68)
[2020-01-23 09:54] LABS: Ferritin 57 ng/mL (11-264)
[2020-01-24 07:18] LABS: Insulin Level Total 6.5 uIU/mL (2.6-24.9)
== END ==
PROVIDERS: PCP Family Medicine; Referring Provider Family Medicine; Visit Provider Family Medicine
DX: D50.0 Iron deficiency anemia secondary to blood loss (chronic) (principal); E03.9 Hypothyroidism, unspecified; G43.909 Migraine, unspecified, not intractable, without status migrainosus; Z13.220 Encounter for screening for lipoid disorders
CPT/HCPCS: 36415; 80053; 80061; 82728; 83525; 84439; 84443; 84481; 85025; 85384; 86140

== ENCOUNTER 2020-02-06 13:45 | Outpatient (RCR) | payer OTHER, MEDICAID, SELFPAY ==
[2019-11-20 13:03] VITALS: BMI 22.8
--- NOTE | 2019-12-06 11:13 | PT.OIE ---
Current Diagnoses Difficulty in walking, not elsewhere classified (12/06/19) Weakness (12/06/19) Pain due to internal orthopedic prosthetic devices, implants and grafts, initial encounter (12/06/19) Past Medical History (Last Updated 11/16/19 @ 21:29 by Blanka Olmstead) Ankle pain (Chronic) Chicken pox (Resolved) Herpes (Resolved ~1995) Hx of migraine headaches (Acute) Left hip pain (Chronic ~03/2019) Measles (Resolved) Migraines (Chronic ~1978) Mumps (Resolved) Plantar warts (Inactive ~2013) Shoulder pain (Inactive ~1995) Wears glasses (Chronic) Past Surgical History (Last Updated 11/16/19 @ 21:29 by Blanka Olmstead) Anesthesia (Resolved) History of left hip hemiarthroplasty (Acute 06/12/17) Hx of tonsillectomy (Acute ~1961) Visit Care Team Role Provider Type Justin Le DO Primary Care Provider Physician Specialty: Family Practice Address: [address] [place] [phone] Email: Francisco Robles MD Attending Provider Physician Referring Provider Specialty: Orthopedic Surgery Address: [address] [place] [address], [phone] Email: [email or web address] Physical Therapy Initial Evaluation PT-OP-A Visit Information Start: 12/05/19 18:30 Freq: Status: Active Protocol: Document 12/06/19 09:53 [facility] (Rec: 12/06/19 10:36 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 (Rec: 12/06/19 10:36 [facility] [id number]) Current Condition History of Current Condition Onset Date 11/20/19 Current Complaints L MONIK History of Current Condition Pt had a fall and fx the nexk of her femur and had a L hemiarthroplasty and did well about 1 year after and was hiking. Recently pt had inc pain and ended up with MONIK post approach 11/20/19. Pt has felt tired since then. Pt reprots sitting on her desk chair is uncomfortable d/t the incisional angle. Pt has been very scared to go past 90 so posture in chair is poor. She has been doing small walks around the block. Achilles is hurting which she thinks may be pressure from the recliner. Pt doing her exercises daily. Pt cannot sit at her desk for 5 min. Pt is giving herself the month of Dec except minor things. 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 Pt has 2 steps to enter but no issue. Has help 1/2 the time. Prior Treatments and Tests did not do PT after surgery Treatment Goals Patient/Caregiver Goals get back to hiking, Walk [place] park, gardening PT-OP-C Subjective Start: 12/05/19 18:30 Freq: Status: Active Protocol: Document 12/06/19 09:53 [facility] (Rec: 12/06/19 10:36 [facility] [id number]) OP-PT Pain Assessment Location Left Hip Pain Location Details L incisional area, post hip Scale Used mild-annoying Description Pressure,Tender Pain Aggravating Factors Sitting Other Pain Aggravating Factors getting going when first get up Other Pain Alleviating Factors homeopathics PT-OP-F Manual Assessment Start: 12/05/19 18:30 Freq: Status: Active Protocol: Document 12/06/19 09:53 [facility] (Rec: 12/06/19 11:02 [facility] [id number]) Manual Assessments Soft Tissue Assessment Soft Tissue Mobility Assessment L achilles very tender to light touch, no tenderness in calf but tightness PT-OP-G Mobility & Gait Start: 12/05/19 18:30 Freq: Status: Active Protocol: Document 12/06/19 09:53 [facility] (Rec: 12/06/19 11:05 [facility] [id number]) OP Mobility Evaluation Bed Mobility Supine to and from Sit indep OP Gait Assessment Assistive Devices Assistive Device Front Wheeled Walker Gait Deviations General Gait Pattern Antalgic,Decreased Stride Length PT-OP-M Strength Start: 12/05/19 18:30 Freq: Status: Active Protocol: Document 12/06/19 09:53 [facility] (Rec: 12/06/19 10:36 [facility] [id number]) Hip Strength Hip Manual Muscle Testing Right Flexion (L2) 4+ Good+ External Rotation 4+ Good+ Internal Rotation 4+ Good+ Left External Rotation 3+ Fair+ Internal Rotation 3+ Fair+ Comments ER/IR tested in neutral Knee Strength Knee Manual Muscle Testing Right Flexion (S2) 5 Normal Extension (L3) 5 Normal Left Flexion (S2) 4 Good Extension (L3) 4 Good Ankle/Foot Strength Ankle and Foot Manual Muscle Testing Right Dorsiflexion (L4) 5 Normal Plantarflexion (S1) 5 Normal Comments seated testing Left Dorsiflexion (L4) 4- Good- Plantarflexion (S1) 4 Good Comments pain in achilles PT-OP-Q Treatments Start: 12/05/19 18:30 Freq: Status: Active Protocol: Document 12/06/19 09:53 [facility] (Rec: 12/06/19 10:36 [facility] [id number]) Therapeutic Activity Therapeutic Activity sleep postion Name supine w/pillow & towel support seat position Name edu and set up of seat position Comments demo of lumbar support, 22in heigh about what is appopriate PT-OP-T Assessment and Plan Start: 12/05/19 18:30 Freq: Status: Active Protocol: Document 12/06/19 09:53 [facility] (Rec: 12/06/19 10:36 [facility] [id number]) Physical Therapy Assessment Goals gait Impairment lacking about 8 deg DF on L ankle Short Term Goal (STG) Pt will achieved at least 5 deg DF on LLe STG Duration 01/06/20 Range Aide Goal (LTG) Pt will be able to amb with appropriate push off without achilles or hip pain. LTG Duration 02/05/20 balance Retirement Goal (LTG) Pt will be able to do SLS without lat deviation for 10 sec to show appropriate wt acceptance and improved balance. LTG Duration 02/05/20 strength Short Term Goal (STG) Pt will be indep with HEP. STG Duration 01/06/20 Range Aide Goal (LTG) Pt will have equal LE strength B to allow pt return to her job and typical rec activities . LTG Duration 02/05/20 amb Short Term Goal (STG) Pt will be able to walk .5 mile without AD without greater than 2/10 pain STG Duration 01/06/20 Range Aide Goal (LTG) Pt will be able to hike 2 miles without AD without pain greater than /10. LTG Duration 02/05/20 Assessment Summary Assessment Pt presents 16 days s/p L MONIK after failed hemiarthroplasty. 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 She is restricted from 90 deg flex of L hip for 12 months and is very aware of her precautions . She has developed some swelling in L thigh and also around achilles. No swelling of calf and no tenderness to squeezing of calf. Pain of achiles is likely limiting her gait pattern and will affect her rehab of her hip so would benefit from PT to address this pain to improve gait mechanics. Physical Therapy Plan Frequency and Duration Frequency of Treatment 1-2x/week Duration of Treatment 2 months Plan of Care Start Date 12/06/19 Plan of Care End Date 02/05/20 Therapeutic Interventions Therapeutic Interventions Aquatic Therapy,Balance Training,Gait Training,Home Exercise Program,Joint Mobilizations,Manual Therapy, Neuromuscular Re-education, Patient/Caregiver Education, Self-Care/Home Management,Soft Tissue Mobilization,Taping, Therapeutic Activities, Therapeutic Exercises Modalities Cold Pack/Ice Massage,Electric Stimulation,Hot Packs, Infrared Therapy,Iontophoresis ,Ultrasound Next Visit Focus/Plan Next Note Type Treatment Note Next Visit Plan Work on gait and progression possibly towards cane amb, work on calf tightness, work on glute activiation
--- NOTE | 2019-12-06 11:13 | PT.OPPOC ---
Physical, Occupational & Speech Therapy At [facility] Current Diagnoses Difficulty in walking, not elsewhere classified (12/06/19) Weakness (12/06/19) Pain due to internal orthopedic prosthetic devices, implants and grafts, initial encounter (12/06/19) Visit Care Team Role Provider Type Justin Le DO Primary Care Provider Physician Specialty: Family Practice Address: [address] [place] [address], [phone] Email: Francisco Robles MD Attending Provider Physician Referring Provider Specialty: Orthopedic Surgery Address: [address] [place] [address], [id number] Email: [email or web address] Plan Of Care PT-OP-T Assessment and Plan Start: 12/05/19 18:30 Freq: Status: Active Protocol: Document 12/06/19 09:53 [facility] (Rec: 12/06/19 10:36 [facility] [id number]) Physical Therapy Assessment Goals gait Impairment lacking about 8 deg DF on L ankle Short Term Goal (STG) Pt will achieved at least 5 deg DF on LLe STG Duration 01/06/20 Intermediate Goal (LTG) Pt will be able to amb with appropriate push off without achilles or hip pain. LTG Duration 02/05/20 balance Knitting Inspector Goal (LTG) Pt will be able to do SLS without lat deviation for 10 sec to show appropriate wt acceptance and improved balance. LTG Duration 02/05/20 strength Short Term Goal (STG) Pt will be indep with HEP. STG Duration 01/06/20 Knitting Inspector Goal (LTG) Pt will have equal LE strength B to allow pt return to her job and typical rec activities . LTG Duration 02/05/20 amb Short Term Goal (STG) Pt will be able to walk .5 mile without AD without greater than 2/10 pain STG Duration 01/06/20 Knitting Inspector Goal (LTG) Pt will be able to hike 2 miles without AD without pain greater than 1/10. LTG Duration 02/05/20 Assessment Summary Assessment Pt presents 16 days s/p L MONIK after failed hemiarthroplasty. 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 She is restricted from 90 deg flex of L hip for 12 months and is very aware of her precautions . She has developed some swelling in L thigh and also around achilles. No swelling of calf and no tenderness to squeezing of calf. Pain of achiles is likely limiting her gait pattern and will affect her rehab of her hip so would benefit from PT to address this pain to improve gait mechanics. Physical Therapy Plan Frequency and Duration Frequency of Treatment 1-2x/week Duration of Treatment 2 months Plan of Care Start Date 12/06/19 Plan of Care End Date 02/05/20 Therapeutic Interventions Therapeutic Interventions Aquatic Therapy,Balance Training,Gait Training,Home Exercise Program,Joint Mobilizations,Manual Therapy, Neuromuscular Re-education, Patient/Caregiver Education, Self-Care/Home Management,Soft Tissue Mobilization,Taping, Therapeutic Activities, Therapeutic Exercises Modalities Cold Pack/Ice Massage,Electric Stimulation,Hot Packs, Infrared Therapy,Iontophoresis ,Ultrasound Next Visit Focus/Plan Next Note Type Treatment Note Next Visit Plan Work on gait and progression possibly towards cane amb, work on calf tightness, work on glute activiation Plan of Care Dates Plan of Care Start Date 12/06/19 Plan of Care End Date 02/05/20 Electronically Signed by: Alyssia Pizarro, PT 12/06/19 [id number] Please Sign and Return: I have reviewed this Plan of Care and certify that the skilled therapy services above are required to meet the patient?s needs. Physician Signature Date Printed Name and Credentials Clinical Instructor Signature Printed Name and Credentials
--- NOTE | 2019-12-11 13:09 | PT.OTN ---
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 Recently pt had inc pain and ended up with MONIK post approach 11/20/19. Pt has felt tired since then. Pt reprots sitting on her desk chair is uncomfortable d/t the incisional angle. Pt has been very scared to go past 90 so posture in chair is poor. She has been doing small walks around the block. Achilles is hurting which she thinks may be pressure from the recliner. Pt doing her exercises daily. Pt cannot sit at her desk for 5 min. Pt is giving herself the month of Dec off except minor things. 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 Pt has 2 steps to enter but no issue. Has help 1/2 the time. Prior Treatments and Tests did not do PT after surgery Treatment Goals Patient/Caregiver Goals get back to hiking, Walk [place] park, gardening PT-OP-C Subjective Start: 12/05/19 18:30 Freq: Status: Active Protocol: Document 12/11/19 12:15 [facility] (Rec: 12/11/19 15:57 [facility] [id number]) OP-PT Subjective Patient Comments Patient Comments Pt reports improving in activities on her feet at home : able to walk with SPC in house short distances and using FWW walking about 3 block radius lap 2- 3x daily. Is compliant with post op exercises in supine, standing at home. PT-OP-F Manual Assessment Start: 12/05/19 18:30 Freq: Status: Active Protocol: Document 12/06/19 09:53 [facility] (Rec: 12/06/19 11:02 [facility] [id number]) Manual Assessments Soft Tissue Assessment Soft Tissue Mobility Assessment L achilles very tender to light touch, no tenderness in calf but tightness PT-OP-G Mobility & Gait Start: 12/05/19 18:30 Freq: Status: Active Protocol: Document 12/06/19 09:53 [facility] (Rec: 12/06/19 11:05 [facility] [id number]) OP Mobility Evaluation Bed Mobility Supine to and from Sit indep OP Gait Assessment Assistive Devices Assistive Device Front Wheeled Walker Gait Deviations General Gait Pattern Antalgic,Decreased Stride Length PT-OP-M Strength Start: 12/05/19 18:30 Freq: Status: Active Protocol: Document 12/06/19 09:53 [facility] (Rec: 12/06/19 10:36 [facility] [id number]) Hip Strength Hip Manual Muscle Testing Right Flexion (L2) 4+ Good+ External Rotation 4+ Good+ Internal Rotation 4+ Good+ Left External Rotation 3+ Fair+ Internal Rotation 3+ Fair+ Comments ER/IR tested in neutral Knee Strength Knee Manual Muscle Testing Right Flexion (S2) 5 Normal Extension (L3) 5 Normal Left Flexion (S2) 4 Good Extension (L3) 4 Good Ankle/Foot Strength Ankle and Foot Manual Muscle Testing Right Dorsiflexion (L4) 5 Normal Plantarflexion (S1) 5 Normal Comments seated testing Left Dorsiflexion (L4) 4- Good- Plantarflexion (S1) 4 Good Comments pain in achilles PT-OP-Q Treatments Start: 12/05/19 18:30 Freq: Status: Active Protocol: Document 12/11/19 12:15 [facility] (Rec: 12/11/19 15:57 [facility] [id number]) Therapeutic Exercises Supine Exercises bridges Reps/Minutes 2x5 Comments cued slow eccentric control Post op ex Supine Exercise Name ankle pumps, DL heel slides, SLR (opposite knee bent) Standing Exercises HS curls Side bilateral Reps/Minutes 2x10 Mini squat Standing Exercise Name eccentric Equipment Used rail support Reps/Minutes 2x5 hip abd, ext Reps/Minutes 3x10 LLE, 2x10 RLE Comments cued slow control con/ eccentric pacing control and no hip elevation Heel raises Standing Exercise Name HR/TR Side bilateral Equipment Used rail contact Reps/Minutes 2x10 Comments slow pacing Gait Training Gait Activity walking Description Forward, backward, side stepping, high knees Device Used at rail inititally Level of Assistance SBa Surface stable Distance/Duration 20 ft 2 laps each Treatment Focus normalizing gait, glut/ core facilitation Comments cued slow level pelvis, stelth , miror self feedback PT-OP-T Assessment and Plan Start: 12/05/19 18:30 Freq: Status: Active Protocol: Document 12/11/19 12:15 [facility] (Rec: 12/11/19 15:57 [facility] [id number]) Physical Therapy Assessment Goals gait Impairment lacking about 8 deg DF on L ankle Short Term Goal (STG) Pt will achieved at least 5 deg DF on LLe STG Duration 01/06/20 National Sales Goal (LTG) Pt will be able to amb with appropriate push off without achilles or hip pain. LTG Duration 02/05/20 balance Senior Care Goal (LTG) Pt will be able to do SLS without lat deviation for 10 sec to show appropriate wt acceptance and improved balance. LTG Duration 02/05/20 strength Short Term Goal (STG) Pt will be indep with HEP. STG Duration 01/06/20 National Sales Goal (LTG) Pt will have equal LE strength B to allow pt return to her job and typical rec activities . LTG Duration 02/05/20 amb Short Term Goal (STG) Pt will be able to walk .5 mile without AD without greater than 2/10 pain 12/11/19 6MWT= 1175 ft using SPC in RUE. STG Duration 01/06/20 Senior Care Goal (LTG) Pt will be able to hike 2 miles without AD without pain greater than 1/10. LTG Duration 02/05/20 Assessment Summary Assessment Pt responded well to HEP. Cued required for slow pacing control and decreased hip elevation compensations slow stelth muscular controlled movement, level pelvis during standing ex and gait using SPC in front of mirror with improvement in self corrections. Added glut bridges and SLR to HEP, cued slow pacing and tolerant mid range with noted good form. Completed 6MWT 1175 ft using SPC, little increase in R UE pressure onto SPC by end of time but good ajay pacing and not significant effort. Discussed felt comfortable with walking with SPC on walks in neighborhood as long as good quality gait as demonstrated during tx today with safe pacing and awareness of obstacle/uneven surfaces for safety with verbal confirmation. Physical Therapy Plan Frequency and Duration Frequency of Treatment 1-2x/week Duration of Treatment 2 months Plan of Care Start Date 12/06/19 Plan of Care End Date 02/05/20 Therapeutic Interventions Therapeutic Interventions Aquatic Therapy,Balance Training,Gait Training,Home Exercise Program,Joint Mobilizations,Manual Therapy, Neuromuscular Re-education, Patient/Caregiver Education, Self-Care/Home Management,Soft Tissue Mobilization,Taping, Therapeutic Activities, Therapeutic Exercises Modalities Cold Pack/Ice Massage,Electric Stimulation,Hot Packs, Infrared Therapy,Iontophoresis ,Ultrasound Next Visit Focus/Plan Next Note Type Treatment Note Next Visit Plan Assess response to quality standing, supine exercises and gait using SPC last tx. Next tx work on calf tightness , continue to work on glute activation.
--- NOTE | 2019-12-14 13:03 | PT.OTN ---
Addendum entered and electronically signed by Shawna Syed, FINISH CLEANER 12/14/19 15:55: Ther ex: also vivian christie stretch LLE off table for quad/hip flexor stretch 30 sec. Original Note: Current Diagnoses Difficulty in walking, not elsewhere classified (12/14/19) Weakness (12/14/19) Pain due to internal orthopedic prosthetic devices, implants and grafts, initial encounter (12/14/19) Physical Therapy Treatment Note PT-OP-A Visit Information Start: 12/05/19 18:30 Freq: Status: Active Protocol: Document 12/14/19 12:18 SP (Rec: 12/14/19 15:53 SP [id number]) Out-Patient Physical Therapy Visit Information Visit Information Visit Type Treatment Note Visit Start Time 12:18 Visit Stop Time 13:07 Total Visit Minutes 49 Visit Number 3 Number of FINISH CLEANER Visits 2 PT-OP-B Current Condition Start: 12/05/19 18:30 Freq: Status: Active Protocol: Document 12/06/19 09:53 [facility] (Rec: 12/06/19 10:36 [facility] [id number]) Current Condition History of Current Condition Onset Date 11/20/19 Current Complaints L MONIK History of Current Condition Pt had a fall and fx the nexk of her femur and had a L hemiarthroplasty and did well about 1 year after and was hiking. Recently pt had inc pain and ended up with MONIK post approach 11/20/19. Pt has felt tired since then. Pt reprots sitting on her desk chair is uncomfortable d/t the incisional angle. Pt has been very scared to go past 90 so posture in chair is poor. She has been doing small walks around the block. Achilles is hurting which she thinks may be pressure from the recliner. Pt doing her exercises daily. Pt cannot sit at her desk for 5 min. Pt is giving herself the month of Dec except minor things. 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 Pt has 2 steps to enter but no issue. Has help 1/2 the time. Prior Treatments and Tests did not do PT after surgery Treatment Goals Patient/Caregiver Goals get back to hiking, Walk [place] park, gardening PT-OP-C Subjective Start: 12/05/19 18:30 Freq: Status: Active Protocol: Document 12/14/19 12:18 SP (Rec: 12/14/19 15:53 SP [id number]) OP-PT Subjective Patient Comments Patient Comments Pt stated felt fine after last tx, doing well with walks outside using cane, better incrimental with pain during the day, able to sit longer at desk 1 hr 2/ day from 2 min post surgery. PT-OP-F Manual Assessment Start: 12/05/19 18:30 Freq: Status: Active Protocol: Document 12/06/19 09:53 [facility] (Rec: 12/06/19 11:02 [facility] [id number]) Manual Assessments Soft Tissue Assessment Soft Tissue Mobility Assessment L achilles very tender to light touch, no tenderness in calf but tightness PT-OP-G Mobility & Gait Start: 12/05/19 18:30 Freq: Status: Active Protocol: Document 12/06/19 09:53 [facility] (Rec: 12/06/19 11:05 [facility] [id number]) OP Mobility Evaluation Bed Mobility Supine to and from Sit indep OP Gait Assessment Assistive Devices Assistive Device Front Wheeled Walker Gait Deviations General Gait Pattern Antalgic,Decreased Stride Length PT-OP-M Strength Start: 12/05/19 18:30 Freq: Status: Active Protocol: Document 12/06/19 09:53 [facility] (Rec: 12/06/19 10:36 [facility] [id number]) Hip Strength Hip Manual Muscle Testing Right Flexion (L2) 4+ Good+ External Rotation 4+ Good+ Internal Rotation 4+ Good+ Left External Rotation 3+ Fair+ Internal Rotation 3+ Fair+ Comments ER/IR tested in neutral Knee Strength Knee Manual Muscle Testing Right Flexion (S2) 5 Normal Extension (L3) 5 Normal Left Flexion (S2) 4 Good Extension (L3) 4 Good Ankle/Foot Strength Ankle and Foot Manual Muscle Testing Right Dorsiflexion (L4) 5 Normal Plantarflexion (S1) 5 Normal Comments seated testing Left Dorsiflexion (L4) 4- Good- Plantarflexion (S1) 4 Good Comments pain in achilles PT-OP-Q Treatments Start: 12/05/19 18:30 Freq: Status: Active Protocol: Document 12/14/19 12:18 SP (Rec: 12/14/19 15:53 SP [id number]) Therapeutic Exercises Supine Exercises hip flex stretch Supine Exercise Name off table Reps/Minutes 30 sec Comments cued upper back thigh supported on table bridges Reps/Minutes 2x 10 Comments cued slow eccentric control Post op ex Supine Exercise Name DL heel slide, glut set Reps/Minutes 10 each Prone Exercises quad stretch w/ strap Side left Reps/Minutes 30 sec x2 HS curls Reps/Minutes x10 Comments cued slow eccentric control Sidelying Exercises AAROM hip abd Sidelying Exercise Name in PT only at this time, pillow between BLE for no ADD Reps/Minutes 2x10 Comments support to hip/ leg alignment on R side Gait Training Gait Activity pre gait wt shift into glut Description foward, then step through Device Used SPC Level of Assistance SBA Surface stable Distance/Duration in mirror Treatment Focus core/ glut facilitation during WB walking Description forward Device Used SPC Level of Assistance close SBA Surface stable Distance/Duration 20 ft multiple laps Treatment Focus normalizing gait, glut/ core facilitation Comments mirror for self feedback of posture and smiley alignment Manual Therapy Treatment Soft Tissue Mobilization stick rolling Body Location HS, ITB, glut Mobilization Type Rolling Intensity/Depth Moderate Body Position Prone Comments pressure to tolerance 8 min racquetball on wall for self application over glut ( review next tx again) PT-OP-T Assessment and Plan Start: 12/05/19 18:30 Freq: Status: Active Protocol: Document 12/14/19 12:18 SP (Rec: 12/14/19 15:53 SP [id number]) Physical Therapy Assessment Goals gait Impairment lacking about 8 deg DF on L ankle Short Term Goal (STG) Pt will achieved at least 5 deg DF on LLe STG Duration 01/06/20 Bookmobile Clerk Goal (LTG) Pt will be able to amb with appropriate push off without achilles or hip pain. LTG Duration 02/05/20 balance Bookmobile Clerk Goal (LTG) Pt will be able to do SLS without lat deviation for 10 sec to show appropriate wt acceptance and improved balance. LTG Duration 02/05/20 strength Short Term Goal (STG) Pt will be indep with HEP. STG Duration 01/06/20 Penitentiary Goal (LTG) Pt will have equal LE strength B to allow pt return to her job and typical rec activities . LTG Duration 02/05/20 amb Short Term Goal (STG) Pt will be able to walk .5 mile without AD without greater than 2/10 pain 12/11/19 6MWT= 1175 ft using SPC in RUE. STG Duration 9/5/20 Penitentiary Goal (LTG) Pt will be able to hike 2 miles without AD without pain greater than 1/10. LTG Duration 02/05/20 Physical Therapy Plan Frequency and Duration Frequency of Treatment 1-2x/week Duration of Treatment 2 months Plan of Care Start Date 12/06/19 Plan of Care End Date 02/05/20 Therapeutic Interventions Therapeutic Interventions Aquatic Therapy,Balance Training,Gait Training,Home Exercise Program,Joint Mobilizations,Manual Therapy, Neuromuscular Re-education, Patient/Caregiver Education, Self-Care/Home Management,Soft Tissue Mobilization,Taping, Therapeutic Activities, Therapeutic Exercises Modalities Cold Pack/Ice Massage,Electric Stimulation,Hot Packs, Infrared Therapy,Iontophoresis ,Ultrasound Next Visit Focus/Plan Next Note Type Treatment Note Next Visit Plan Assess scar integrity next tx and response to quality standing with forward wt shift /gait using SPC, supine/side exercises last tx. Next tx work on calf, glut, HS , ITB tightness, continue to work on glute activation.
--- NOTE | 2019-12-18 11:20 | PT.OTN ---
Current Diagnoses Difficulty in walking, not elsewhere classified (12/18/19) Weakness (12/18/19) Pain due to internal orthopedic prosthetic devices, implants and grafts, initial encounter (12/18/19) Physical Therapy Treatment Note PT-OP-A Visit Information Start: 12/05/19 18:30 Freq: Status: Active Protocol: Document 12/18/19 08:05 [facility] (Rec: 12/18/19 11:20 [facility] [id number]) Out-Patient Physical Therapy Visit Information Visit Information Visit Type Treatment Note Visit Start Time 08:17 Visit Stop Time 09:00 Total Visit Minutes 43 Visit Number 4 Number of MATHEMATICAL SCIENCES PROFESSOR Visits 0 PT-OP-B Current Condition Start: 12/05/19 18:30 Freq: Status: Active Protocol: Document 12/06/19 09:53 [facility] (Rec: 12/06/19 10:36 [facility] [id number]) Current Condition History of Current Condition Onset Date 11/20/19 Current Complaints L MONIK History of Current Condition Pt had a fall and fx the nexk of her femur and had a L hemiarthroplasty and did well about 1 year after and was hiking. Recently pt had inc pain and ended up with MONIK post approach 11/20/19. Pt has felt tired since then. Pt reprots sitting on her desk chair is uncomfortable d/t the incisional angle. Pt has been very scared to go past 90 so posture in chair is poor. She has been doing small walks around the block. Achilles is hurting which she thinks may be pressure from the recliner. Pt doing her exercises daily. Pt cannot sit at her desk for 5 min. Pt is giving herself the month dec except minor things. 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 Pt has 2 steps to enter but no issue. Has help 1/2 the time. Prior Treatments and Tests did not do PT after surgery Treatment Goals Patient/Caregiver Goals get back to hiking, Walk [place] park, gardening PT-OP-C Subjective Start: 12/05/19 18:30 Freq: Status: Active Protocol: Document 12/18/19 08:05 [facility] (Rec: 12/18/19 11:20 [facility] [id number]) OP-PT Subjective Patient Comments Patient Comments Pt reports doing one walk along [place] of [place] authorGEN Patient Reported Progress Improving PT-OP-F Manual Assessment Start: 12/05/19 18:30 Freq: Status: Active Protocol: Document 12/06/19 09:53 [facility] (Rec: 12/06/19 11:02 [facility] [id number]) Manual Assessments Soft Tissue Assessment Soft Tissue Mobility Assessment L achilles very tender to light touch, no tenderness in calf but tightness PT-OP-G Mobility & Gait Start: 12/05/19 18:30 Freq: Status: Active Protocol: Document 12/06/19 09:53 [facility] (Rec: 12/06/19 11:05 [facility] [id number]) OP Mobility Evaluation Bed Mobility Supine to and from Sit indep OP Gait Assessment Assistive Devices Assistive Device Front Wheeled Walker Gait Deviations General Gait Pattern Antalgic,Decreased Stride Length PT-OP-M Strength Start: 12/05/19 18:30 Freq: Status: Active Protocol: Document 12/06/19 09:53 [facility] (Rec: 12/06/19 10:36 [facility] [id number]) Hip Strength Hip Manual Muscle Testing Right Flexion (L2) 4+ Good+ External Rotation 4+ Good+ Internal Rotation 4+ Good+ Left External Rotation 3+ Fair+ Internal Rotation 3+ Fair+ Comments ER/IR tested in neutral Knee Strength Knee Manual Muscle Testing Right Flexion (S2) 5 Normal Extension (L3) 5 Normal Left Flexion (S2) 4 Good Extension (L3) 4 Good Ankle/Foot Strength Ankle and Foot Manual Muscle Testing Right Dorsiflexion (L4) 5 Normal Plantarflexion (S1) 5 Normal Comments seated testing Left Dorsiflexion (L4) 4- Good- Plantarflexion (S1) 4 Good Comments pain in achilles PT-OP-Q Treatments Start: 12/05/19 18:30 Freq: Status: Active Protocol: Document 12/18/19 08:05 [facility] (Rec: 12/18/19 11:20 [facility] [id number]) Gym Equipment Shuttle Balance red clips Comments fwd & side: WBOS &NBOS fwd: staggered stance B Therapeutic Exercises Supine Exercises hip flex stretch Supine Exercise Name off table Reps/Minutes 30 sec Comments cued upper back thigh supported on table Standing Exercises hip flexor Side left Reps/Minutes 30 sec x2 Comments stretch Mini squat Equipment Used counter support Reps/Minutes 2x10 hip abd, ext Side bilateral Reps/Minutes 2x10 Comments cued slow control con/ eccentric pacing control and no hip elevation Gait Training Gait Activity wt acceptance Description SLS in mirror focus on full wt acceptancew /o lean stairs Description reciprocal Treatment Focus 4 in then 6 in Comments 2 rails to 1 rail prn focus on fwd wt shift 2x ea pre gait wt shift into glut Description foward Device Used counter as needed Level of Assistance SBA Surface stable Distance/Duration in mirror Treatment Focus core/ glut facilitation during WB PT-OP-T Assessment and Plan Start: 12/05/19 18:30 Freq: Status: Active Protocol: Document 12/18/19 08:05 [facility] (Rec: 12/18/19 11:20 [facility] [id number]) Physical Therapy Assessment Goals gait Impairment lacking about 8 deg DF on L ankle Short Term Goal (STG) Pt will achieved at least 5 deg DF on LLe STG Duration 01/06/20 Epidemiology Internship Goal (LTG) Pt will be able to amb with appropriate push off without achilles or hip pain. LTG Duration 02/05/20 balance Mcfp Goal (LTG) Pt will be able to do SLS without lat deviation for 10 sec to show appropriate wt acceptance and improved balance. LTG Duration 02/05/20 strength Short Term Goal (STG) Pt will be indep with HEP. STG Duration 01/06/20 Epidemiology Internship Goal (LTG) Pt will have equal LE strength B to allow pt return to her job and typical rec activities . LTG Duration 02/05/20 amb Short Term Goal (STG) Pt will be able to walk .5 mile without AD without greater than 2/10 pain 12/11/19 6MWT= 1175 ft using SPC in RUE. STG Duration 01/06/20 Epidemiology Internship Goal (LTG) Pt will be able to hike 2 miles without AD without pain greater than 1/10. LTG Duration 02/05/20 Assessment Summary Assessment Pt did well with exercsies today but cueing required for full wt acceptance into BLE for appropriate stability. Improving gait pattern on stairs but challenged by balance aspect of SLS for short duration Physical Therapy Plan Frequency and Duration Frequency of Treatment 1-2x/week Duration of Treatment 2 months Plan of Care Start Date 12/06/19 Plan of Care End Date 02/05/20 Next Visit Focus/Plan Next Note Type Treatment Note Next Visit Plan cont to work on glutes, resume STM, cont to work on hip stability
--- NOTE | 2019-12-21 13:57 | PT.OTN ---
Current Diagnoses Difficulty in walking, not elsewhere classified (12/21/19) Weakness (12/21/19) Pain due to internal orthopedic prosthetic devices, implants and grafts, initial encounter (12/21/19) Physical Therapy Treatment Note PT-OP-A Visit Information Start: 12/05/19 18:30 Freq: Status: Active Protocol: Document 12/21/19 13:00 SP (Rec: 12/21/19 14:08 SP [id number]) Out-Patient Physical Therapy Visit Information Visit Information Visit Type Treatment Note Visit Start Time 13:00 Visit Stop Time 13:57 Total Visit Minutes 57 Visit Number 5 Number of PAEDIATRIC PHYSIOTHERAPIST Visits 1 PT-OP-B Current Condition Start: 12/05/19 18:30 Freq: Status: Active Protocol: Document 12/06/19 09:53 LR (Rec: 12/06/19 10:36 LR [id number]) Current Condition History of Current Condition Onset Date 11/20/19 Current Complaints L MONIK History of Current Condition Pt had a fall and fx the nexk of her femur and had a L hemiarthroplasty and did well about 1 year after and was hiking. Recently pt had inc pain and ended up with MONIK post approach 11/20/19. Pt has felt tired since then. Pt reprots sitting on her desk chair is uncomfortable d/t the incisional angle. Pt has been very scared to go past 90 so posture in chair is poor. She has been doing small walks around the block. Achilles is hurting which she thinks may be pressure from the recliner. Pt doing her exercises daily. Pt cannot sit at her desk for 5 min. Pt is giving herself the dec except minor things. 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 Pt has 2 steps to enter but no issue. Has help 1/2 the time. Prior Treatments and Tests did not do PT after surgery Treatment Goals Patient/Caregiver Goals get back to hiking, Walk [place] park, gardening PT-OP-C Subjective Start: 12/05/19 18:30 Freq: Status: Active Protocol: Document 12/21/19 13:00 SP (Rec: 12/21/19 14:08 SP [id number]) OP-PT Subjective Patient Comments Patient Comments Pt reports don't feel need to use SPC at much now walking. Patient Reported Progress Improving PT-OP-F Manual Assessment Start: 12/05/19 18:30 Freq: Status: Active Protocol: Document 12/06/19 09:53 [facility] (Rec: 12/06/19 11:02 [facility] [id number]) Manual Assessments Soft Tissue Assessment Soft Tissue Mobility Assessment L achilles very tender to light touch, no tenderness in calf but tightness PT-OP-G Mobility & Gait Start: 12/05/19 18:30 Freq: Status: Active Protocol: Document 12/06/19 09:53 [facility] (Rec: 12/06/19 11:05 [facility] [id number]) OP Mobility Evaluation Bed Mobility Supine to and from Sit indep OP Gait Assessment Assistive Devices Assistive Device Front Wheeled Walker Gait Deviations General Gait Pattern Antalgic,Decreased Stride Length PT-OP-M Strength Start: 12/05/19 18:30 Freq: Status: Active Protocol: Document 12/06/19 09:53 [facility] (Rec: 12/06/19 10:36 [facility] [id number]) Hip Strength Hip Manual Muscle Testing Right Flexion (L2) 4+ Good+ External Rotation 4+ Good+ Internal Rotation 4+ Good+ Left External Rotation 3+ Fair+ Internal Rotation 3+ Fair+ Comments ER/IR tested in neutral Knee Strength Knee Manual Muscle Testing Right Flexion (S2) 5 Normal Extension (L3) 5 Normal Left Flexion (S2) 4 Good Extension (L3) 4 Good Ankle/Foot Strength Ankle and Foot Manual Muscle Testing Right Dorsiflexion (L4) 5 Normal Plantarflexion (S1) 5 Normal Comments seated testing Left Dorsiflexion (L4) 4- Good- Plantarflexion (S1) 4 Good Comments pain in achilles PT-OP-Q Treatments Start: 12/05/19 18:30 Freq: Status: Active Protocol: Document 12/21/19 13:00 SP (Rec: 12/21/19 14:08 SP [id number]) Gym Equipment Sport Cord maroon wt shift acceptance and forward locomotion Exercise Details forward/backward/ side step Cord/Resistance maroon/red Reps/Duration 5 reps each directions x2 sets Comments cued elevated posture, level pelvis, core and glut facilitaitons and hip ext with mirror Therapeutic Exercises Sidelying Exercises clam shell Side left Resistance AROM Reps/Minutes 2x5 Comments cued core and glut facilitation for stable pelvis and ROM AAROM hip abd Sidelying Exercise Name hip abd Side left Resistance ROM Reps/Minutes 2x5 Comments cued core and glut facilitation for stable pelvis and ROM Gait Training Gait Activity rafiq stepping Description forward Treatment Focus LLE SLS level pelvis, hip ext during RLE toe off and swing through Comments glut and core facilitation to improve decreased R pelvis depression during LLE WB phases wt acceptance Description SLS in mirror focus on full wt acceptancew /o lean pre gait wt shift into glut Description foward, step through and 1 rafiq Device Used counter as needed Level of Assistance SBA Surface stable Distance/Duration in mirror Treatment Focus core/ glut facilitation during WB PT-OP-T Assessment and Plan Start: 12/05/19 18:30 Freq: Status: Active Protocol: Document 12/21/19 13:00 SP (Rec: 12/21/19 14:08 SP [id number]) Physical Therapy Assessment Goals gait Impairment lacking about 8 deg DF on L ankle Short Term Goal (STG) Pt will achieved at least 5 deg DF on LLe STG Duration 01/06/20 Jail Goal (LTG) Pt will be able to amb with appropriate push off without achilles or hip pain. LTG Duration 02/05/20 balance Squadron Worker Goal (LTG) Pt will be able to do SLS without lat deviation for 10 sec to show appropriate wt acceptance and improved balance. LTG Duration 02/05/20 strength Short Term Goal (STG) Pt will be indep with HEP. STG Duration 01/06/20 Squadron Worker Goal (LTG) Pt will have equal LE strength B to allow pt return to her job and typical rec activities . LTG Duration 02/05/20 amb Short Term Goal (STG) Pt will be able to walk .5 mile without AD without greater than 2/10 pain 12/11/19 6MWT= 1175 ft using SPC in RUE. STG Duration 01/06/20 Jail Goal (LTG) Pt will be able to hike 2 miles without AD without pain greater than 1/10. LTG Duration 02/05/20 Assessment Summary Assessment Pt improved with LLE stability during cuing and increased resistance sport cord wt acceptance to increase LLE hip ext and glut firing during RLE advancement today to improve normalizing gait. Pt still challenged with LLE SLS. Added clamshell and hip abd for glut med strengthening to HEP with occaional cue for core facilitation to stabilize pelvis and no trunk rotation with better form. Physical Therapy Plan Frequency and Duration Frequency of Treatment 1-2x/week Duration of Treatment 2 months Plan of Care Start Date 12/06/19 Plan of Care End Date 02/05/20 Therapeutic Interventions Therapeutic Interventions Aquatic Therapy,Balance Training,Gait Training,Home Exercise Program,Joint Mobilizations,Manual Therapy, Neuromuscular Re-education, Patient/Caregiver Education, Self-Care/Home Management,Soft Tissue Mobilization,Taping, Therapeutic Activities, Therapeutic Exercises Modalities Cold Pack/Ice Massage,Electric Stimulation,Hot Packs, Infrared Therapy,Iontophoresis ,Ultrasound Next Visit Focus/Plan Next Note Type Treatment Note Next Visit Plan Assess response to added clam shell, hip abd to HEP and sport cord during wt shift last tx. cont to work on glutes, resume STM, cont to work on hip stability
--- NOTE | 2019-12-29 15:15 | PT.OTN ---
Current Diagnoses Difficulty in walking, not elsewhere classified (12/29/19) Weakness (12/29/19) Pain due to internal orthopedic prosthetic devices, implants and grafts, initial encounter (12/29/19) Physical Therapy Treatment Note PT-OP-A Visit Information Start: 12/05/19 18:30 Freq: Status: Active Protocol: Document 12/29/19 14:35 SP (Rec: 12/29/19 16:10 SP [id number]) Out-Patient Physical Therapy Visit Information Visit Information Visit Type Treatment Note Visit Start Time 14:35 Visit Stop Time 15:15 Total Visit Minutes 40 Visit Number 7 Number of [employer] Visits 1 PT-OP-B Current Condition Start: 12/05/19 18:30 Freq: Status: Active Protocol: Document 12/06/19 09:53 [facility] (Rec: 12/06/19 10:36 [facility] [id number]) Current Condition History of Current Condition Onset Date 11/20/19 Current Complaints L MONIK History of Current Condition Pt had a fall and fx the nexk of her femur and had a L hemiarthroplasty and did well about 1 year after and was hiking. Recently pt had inc pain and ended up with MONIK post approach 11/20/19. Pt has felt tired since then. Pt reprots sitting on her desk chair is uncomfortable d/t the incisional angle. Pt has been very scared to go past 90 so posture in chair is poor. She has been doing small walks around the block. Achilles is hurting which she thinks may be pressure from the recliner. Pt doing her exercises daily. Pt cannot sit at her desk for 5 min. Pt is giving herself the of Dec except minor things. 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 Pt has 2 steps to enter but no issue. Has help 1/2 the time. Prior Treatments and Tests did not do PT after surgery Treatment Goals Patient/Caregiver Goals get back to hiking, Walk [place] park, gardening PT-OP-C Subjective Start: 12/05/19 18:30 Freq: Status: Active Protocol: Document 12/29/19 14:35 SP (Rec: 12/29/19 16:10 SP [id number]) OP-PT Subjective Patient Comments Patient Comments Pt reports has been doing core HEP instructed last tx and thinks doing well and gait quality carryover but wants to review again. Pt went for a walk on uneven and slight occasional incline/decline around [place] this am and feels pretty good. PT-OP-F Manual Assessment Start: 12/05/19 18:30 Freq: Status: Active Protocol: Document 12/06/19 09:53 [facility] (Rec: 12/06/19 11:02 [facility] [id number]) Manual Assessments Soft Tissue Assessment Soft Tissue Mobility Assessment L achilles very tender to light touch, no tenderness in calf but tightness PT-OP-G Mobility & Gait Start: 12/05/19 18:30 Freq: Status: Active Protocol: Document 12/06/19 09:53 [facility] (Rec: 12/06/19 11:05 [facility] [id number]) OP Mobility Evaluation Bed Mobility Supine to and from Sit indep OP Gait Assessment Assistive Devices Assistive Device Front Wheeled Walker Gait Deviations General Gait Pattern Antalgic,Decreased Stride Length PT-OP-M Strength Start: 12/05/19 18:30 Freq: Status: Active Protocol: Document 12/06/19 09:53 [facility] (Rec: 12/06/19 10:36 [facility] [id number]) Hip Strength Hip Manual Muscle Testing Right Flexion (L2) 4+ Good+ External Rotation 4+ Good+ Internal Rotation 4+ Good+ Left External Rotation 3+ Fair+ Internal Rotation 3+ Fair+ Comments ER/IR tested in neutral Knee Strength Knee Manual Muscle Testing Right Flexion (S2) 5 Normal Extension (L3) 5 Normal Left Flexion (S2) 4 Good Extension (L3) 4 Good Ankle/Foot Strength Ankle and Foot Manual Muscle Testing Right Dorsiflexion (L4) 5 Normal Plantarflexion (S1) 5 Normal Comments seated testing Left Dorsiflexion (L4) 4- Good- Plantarflexion (S1) 4 Good Comments pain in achilles PT-OP-Q Treatments Start: 12/05/19 18:30 Freq: Status: Active Protocol: Document 12/29/19 14:35 SP (Rec: 12/29/19 16:10 SP [id number]) Therapeutic Exercises Supine Exercises TA Supine Exercise Name Work on scissor taps w/bent knee Reps/Minutes 10 Comments able to maintain LS stabilization PPT so added stationary Dl lift w/ UE OH hip flex stretch Supine Exercise Name off table Resistance DL AROM Reps/Minutes x10 Comments good UB stabilization Prone Exercises bird dog Prone Exercise Name foot Le ext contact intially then ok 1 lift Reps/Minutes 2x8 reps Comments L pelvic anterior press facilitation level pelvis Sidelying Exercises clam shell Side bilateral Resistance AROM Reps/Minutes x12 Comments good pace, core pelvic alignment AAROM hip abd Sidelying Exercise Name AROM Side bilateral Reps/Minutes x12 Comments good pace, core pelvic alignment Standing Exercises hip hike Standing Exercise Name on 2 in step-small range (to challenged 4 step) Side bilateral Reps/Minutes 15 Comments focus on no lumbar ext and rotation Gait Training Gait Activity walking Description forward Device Used none Level of Assistance distance Supervision Surface stable Distance/Duration 50 ft multiple laps Treatment Focus normalizing gait, glut/ core facilitation Comments hip ext propel with PPT awareness, TS rotation with arm swing allowance PT-OP-T Assessment and Plan Start: 12/05/19 18:30 Freq: Status: Active Protocol: Document 12/29/19 14:35 SP (Rec: 12/29/19 16:10 SP [id number]) Physical Therapy Assessment Goals gait Impairment lacking about 8 deg DF on L ankle Short Term Goal (STG) Pt will achieved at least 5 deg DF on LLe STG Duration 01/06/20 Accounting Instructor Goal (LTG) Pt will be able to amb with appropriate push off without achilles or hip pain. LTG Duration 02/05/20 balance Accounting Instructor Goal (LTG) Pt will be able to do SLS without lat deviation for 10 sec to show appropriate wt acceptance and improved balance. LTG Duration 02/05/20 strength Short Term Goal (STG) Pt will be indep with HEP. STG Duration 01/06/20 Jail Goal (LTG) Pt will have equal LE strength B to allow pt return to her job and typical rec activities . LTG Duration 02/05/20 amb Short Term Goal (STG) Pt will be able to walk .5 mile without AD without greater than 2/10 pain 12/11/19 6MWT= 1175 ft using SPC in RUE. STG Duration 01/06/20 Accounting Instructor Goal (LTG) Pt will be able to hike 2 miles without AD without pain greater than 1/10. LTG Duration 02/05/20 Assessment Summary Assessment Tx focused on core and proper form during TA added HEP with cuing for slow pacing, PPT. Initiated TS rotation and arm swing that improved LS ext during gait with good level pelvis LE ext propel. Added LE stationary with UE flexion during bug core tired quickly but ableto perform and coordinated stabilization. Added bird dog with L hip anterior press facilitation for level pelvis to attain LE ext 2 lift (LE only). Pt able to get on off floor better with UE support on chair than none while maintaining hip precautions. Physical Therapy Plan Frequency and Duration Frequency of Treatment 1-2x/week Duration of Treatment 2 months Plan of Care Start Date 12/06/19 Plan of Care End Date 02/05/20 Therapeutic Interventions Therapeutic Interventions Aquatic Therapy,Balance Training,Gait Training,Home Exercise Program,Joint Mobilizations,Manual Therapy, Neuromuscular Re-education, Patient/Caregiver Education, Self-Care/Home Management,Soft Tissue Mobilization,Taping, Therapeutic Activities, Therapeutic Exercises Modalities Cold Pack/Ice Massage,Electric Stimulation,Hot Packs, Infrared Therapy,Iontophoresis ,Ultrasound Next Visit Focus/Plan Next Note Type Treatment Note Next Visit Plan review gait qualitiy, scar mobs, core/ hip abd strengthening and stability.
--- NOTE | 2020-01-01 15:15 | PT.OTN ---
Current Diagnoses Difficulty in walking, not elsewhere classified (01/01/20) Weakness (01/01/20) Pain due to internal orthopedic prosthetic devices, implants and grafts, initial encounter (01/01/20) Physical Therapy Treatment Note PT-OP-A Visit Information Start: 12/05/19 18:30 Freq: Status: Active Protocol: Document 01/01/20 14:45 SP (Rec: 01/01/20 15:34 SP [id number]) Out-Patient Physical Therapy Visit Information Visit Information Visit Type Treatment Note Visit Start Time 14:45 Visit Stop Time 15:15 Total Visit Minutes 30 Visit Number 8 Number of ORDERLY Visits 2 PT-OP-B Current Condition Start: 12/05/19 18:30 Freq: Status: Active Protocol: Document 12/06/19 09:53 [facility] (Rec: 12/06/19 10:36 [facility] [id number]) Current Condition History of Current Condition Onset Date 11/20/19 Current Complaints L MONIK History of Current Condition Pt had a fall and fx the nexk of her femur and had a L hemiarthroplasty and did well about 1 year after and was hiking. Recently pt had inc pain and ended up with MONIK post approach 11/20/19. Pt has felt tired since then. Pt reprots sitting on her desk chair is uncomfortable d/t the incisional angle. Pt has been very scared to go past 90 so posture in chair is poor. She has been doing small walks around the block. Achilles is hurting which she thinks may be pressure from the recliner. Pt doing her exercises daily. Pt cannot sit at her desk for 5 min. Pt is giving herself the of Dec except minor things. 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 Pt has 2 steps to enter but no issue. Has help 1/2 the time. Prior Treatments and Tests did not do PT after surgery Treatment Goals Patient/Caregiver Goals get back to hiking, Walk [place] park, gardening PT-OP-C Subjective Start: 12/05/19 18:30 Freq: Status: Active Protocol: Document 01/01/20 14:45 SP (Rec: 01/01/20 15:34 SP [id number]) OP-PT Subjective Patient Comments Patient Comments Pt reported no concerns and feel able to complete TA better, want to do scar mobility today. PT-OP-F Manual Assessment Start: 12/05/19 18:30 Freq: Status: Active Protocol: Document 12/06/19 09:53 [facility] (Rec: 12/06/19 11:02 [facility] [id number]) Manual Assessments Soft Tissue Assessment Soft Tissue Mobility Assessment L achilles very tender to light touch, no tenderness in calf but tightness PT-OP-G Mobility & Gait Start: 12/05/19 18:30 Freq: Status: Active Protocol: Document 12/06/19 09:53 [facility] (Rec: 12/06/19 11:05 [facility] [id number]) OP Mobility Evaluation Bed Mobility Supine to and from Sit indep OP Gait Assessment Assistive Devices Assistive Device Front Wheeled Walker Gait Deviations General Gait Pattern Antalgic,Decreased Stride Length PT-OP-M Strength Start: 12/05/19 18:30 Freq: Status: Active Protocol: Document 12/06/19 09:53 [facility] (Rec: 12/06/19 10:36 [facility] [id number]) Hip Strength Hip Manual Muscle Testing Right Flexion (L2) 4+ Good+ External Rotation 4+ Good+ Internal Rotation 4+ Good+ Left External Rotation 3+ Fair+ Internal Rotation 3+ Fair+ Comments ER/IR tested in neutral Knee Strength Knee Manual Muscle Testing Right Flexion (S2) 5 Normal Extension (L3) 5 Normal Left Flexion (S2) 4 Good Extension (L3) 4 Good Ankle/Foot Strength Ankle and Foot Manual Muscle Testing Right Dorsiflexion (L4) 5 Normal Plantarflexion (S1) 5 Normal Comments seated testing Left Dorsiflexion (L4) 4- Good- Plantarflexion (S1) 4 Good Comments pain in achilles PT-OP-Q Treatments Start: 12/05/19 18:30 Freq: Status: Active Protocol: Document 01/01/20 14:45 SP (Rec: 01/01/20 15:34 SP [id number]) Gym Equipment Shuttle Balance red clips Reps/Duration 5 min Comments WBOS, NBOS, stagger head turns, vertical, EO/ EC Therapeutic Exercises Sidelying Exercises clam shell Side bilateral Resistance AROM Reps/Minutes x12 Comments good pace, core pelvic alignment AAROM hip abd Sidelying Exercise Name AROM Side bilateral Reps/Minutes 10 sec hold x12 Comments good pace, core pelvic alignment Neuro Re-Education Treatment Balance Activities rafiq even/ uneven surfaces Equipment 6 hurdles, floor then 5 oval cushions Reps/Duration step over step 4 laps each Comments CGA> close SBA PT-OP-T Assessment and Plan Start: 12/05/19 18:30 Freq: Status: Active Protocol: Document 01/01/20 14:45 SP (Rec: 01/01/20 15:34 SP [id number]) Physical Therapy Assessment Goals gait Impairment lacking about 8 deg DF on L ankle Short Term Goal (STG) Pt will achieved at least 5 deg DF on LLe STG Duration 01/06/20 [employer] Goal (LTG) Pt will be able to amb with appropriate push off without achilles or hip pain. LTG Duration 02/05/20 balance [employer] Goal (LTG) Pt will be able to do SLS without lat deviation for 10 sec to show appropriate wt acceptance and improved balance. LTG Duration 02/05/20 strength Short Term Goal (STG) Pt will be indep with HEP. STG Duration 01/06/20 [employer] Goal (LTG) Pt will have equal LE strength B to allow pt return to her job and typical rec activities . LTG Duration 02/05/20 amb Short Term Goal (STG) Pt will be able to walk .5 mile without AD without greater than 2/10 pain 12/11/19 6MWT= 1175 ft using SPC in RUE. STG Duration 01/06/20 Penitentiary Goal (LTG) Pt will be able to hike 2 miles without AD without pain greater than 1/10. LTG Duration 02/05/20 Assessment Summary Assessment Pt 15 min late for appt today due to forgot mask and went back home to get before arrived. Manual with instruction on scar mobility with self performance over L hip. HEP review, occasional cuing for proper form and glut facilitation unable to add resistance secondary to AROM against gravity continues to be challenging. Initiated dynamic uneven surface balance activities today with good self corrections, next tx add stationary SLS uneven surface. Pt reported no adverse affects to tx. Physical Therapy Plan Frequency and Duration Frequency of Treatment 1-2x/week Duration of Treatment 2 months Plan of Care Start Date 12/06/19 Plan of Care End Date 02/05/20 Therapeutic Interventions Therapeutic Interventions Aquatic Therapy,Balance Training,Gait Training,Home Exercise Program,Joint Mobilizations,Manual Therapy, Neuromuscular Re-education, Patient/Caregiver Education, Self-Care/Home Management,Soft Tissue Mobilization,Taping, Therapeutic Activities, Therapeutic Exercises Modalities Cold Pack/Ice Massage,Electric Stimulation,Hot Packs, Infrared Therapy,Iontophoresis ,Ultrasound Next Visit Focus/Plan Next Note Type Treatment Note Next Visit Plan Assess response to last tx: dynamic balance rafiq, uneven surface and scar mobiltiy. Next tx Continue review gait qualitiy, scar mobs, core/ hip abd strengthening and stability.
--- NOTE | 2020-01-05 15:21 | PT.OTN ---
Current Diagnoses Difficulty in walking, not elsewhere classified (01/05/20) Weakness (01/05/20) Pain due to internal orthopedic prosthetic devices, implants and grafts, initial encounter (01/05/20) Physical Therapy Treatment Note PT-OP-A Visit Information Start: 12/05/19 18:30 Freq: Status: Active Protocol: Document 01/05/20 14:34 SP (Rec: 01/05/20 15:35 SP [id number]) Out-Patient Physical Therapy Visit Information Visit Information Visit Type Treatment Note Visit Start Time 14:34 Visit Stop Time 15:21 Total Visit Minutes 47 Visit Number 9 Number of FACE BURLER Visits 3 PT-OP-B Current Condition Start: 12/05/19 18:30 Freq: Status: Active Protocol: Document 12/06/19 09:53 [facility] (Rec: 12/06/19 10:36 [facility] [id number]) Current Condition History of Current Condition Onset Date 11/20/19 Current Complaints L MONIK History of Current Condition Pt had a fall and fx the nexk of her femur and had a L hemiarthroplasty and did well about 1 year after and was hiking. Recently pt had inc pain and ended up with MONIK post approach 11/20/19. Pt has felt tired since then. Pt reprots sitting on her desk chair is uncomfortable d/t the incisional angle. Pt has been very scared to go past 90 so posture in chair is poor. She has been doing small walks around the block. Achilles is hurting which she thinks may be pressure from the recliner. Pt doing her exercises daily. Pt cannot sit at her desk for 5 min. Pt is giving herself the of Dec except minor things. 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 Pt has 2 steps to enter but no issue. Has help 1/2 the time. Prior Treatments and Tests did not do PT after surgery Treatment Goals Patient/Caregiver Goals get back to hiking, Walk [place] park, gardening PT-OP-C Subjective Start: 12/05/19 18:30 Freq: Status: Active Protocol: Document 01/05/20 14:34 SP (Rec: 01/05/20 15:35 SP [id number]) OP-PT Subjective Patient Comments Patient Comments Pt reported L medial/lateral/ posterior knee still little swollen and tight. Challenging performing a bridge, get more of pelvic tilt, I guess my abs are weak. Was ableto walk 1.5 miles partly around [place] again recently. PT-OP-F Manual Assessment Start: 12/05/19 18:30 Freq: Status: Active Protocol: Document 12/06/19 09:53 [facility] (Rec: 12/06/19 11:02 [facility] [id number]) Manual Assessments Soft Tissue Assessment Soft Tissue Mobility Assessment L achilles very tender to light touch, no tenderness in calf but tightness PT-OP-G Mobility & Gait Start: 12/05/19 18:30 Freq: Status: Active Protocol: Document 12/06/19 09:53 [facility] (Rec: 12/06/19 11:05 [facility] [id number]) OP Mobility Evaluation Bed Mobility Supine to and from Sit indep OP Gait Assessment Assistive Devices Assistive Device Front Wheeled Walker Gait Deviations General Gait Pattern Antalgic,Decreased Stride Length PT-OP-M Strength Start: 12/05/19 18:30 Freq: Status: Active Protocol: Document 12/06/19 09:53 [facility] (Rec: 12/06/19 10:36 [facility] [id number]) Hip Strength Hip Manual Muscle Testing Right Flexion (L2) 4+ Good+ External Rotation 4+ Good+ Internal Rotation 4+ Good+ Left External Rotation 3+ Fair+ Internal Rotation 3+ Fair+ Comments ER/IR tested in neutral Knee Strength Knee Manual Muscle Testing Right Flexion (S2) 5 Normal Extension (L3) 5 Normal Left Flexion (S2) 4 Good Extension (L3) 4 Good Ankle/Foot Strength Ankle and Foot Manual Muscle Testing Right Dorsiflexion (L4) 5 Normal Plantarflexion (S1) 5 Normal Comments seated testing Left Dorsiflexion (L4) 4- Good- Plantarflexion (S1) 4 Good Comments pain in achilles PT-OP-Q Treatments Start: 12/05/19 18:30 Freq: Status: Active Protocol: Document 01/05/20 14:34 SP (Rec: 01/05/20 15:35 SP [id number]) Therapeutic Exercises Supine Exercises Adductor/HS stretch w/ strap Side bilateral Reps/Minutes 3 x 30 sec approx 75-80 deg hip flex bridges Supine Exercise Name facilitated w/traction & approximation Reps/Minutes 2x 10 Comments cued slow eccentric control Sidelying Exercises clam shell Side bilateral Resistance AROM Reps/Minutes x12 Comments good pace, core pelvic alignment AAROM hip abd Sidelying Exercise Name AROM Side bilateral Reps/Minutes 10 sec hold x12 Comments good pace, core pelvic alignment Standing Exercises band walk Standing Exercise Name f/b/side stepping Resistance L1 TB Reps/Minutes 5 ft x4 laps Comments cued level pelvis, glut propel w/ trunk elevation, core facilitation hs stretch Standing Exercise Name hip hinge >90 deg Side left Equipment Used contact table Reps/Minutes 30 Manual Therapy Treatment Soft Tissue Mobilization scar STMs Body Location L hip Mobilization Type Cross-Friction,Myofascial Release,Rolling Intensity/Depth Moderate Body Position Sidelying ITB Body Location L Mobilization Type Rolling Intensity/Depth Moderate Body Position Sidelying Comments rolling stick manual PT-OP-T Assessment and Plan Start: 12/05/19 18:30 Freq: Status: Active Protocol: Document 01/05/20 14:34 SP (Rec: 01/05/20 15:35 SP [id number]) Physical Therapy Assessment Goals gait Impairment lacking about 8 deg DF on L ankle Short Term Goal (STG) Pt will achieved at least 5 deg DF on LLe STG Duration 01/06/20 Bat Lathe Operator Goal (LTG) Pt will be able to amb with appropriate push off without achilles or hip pain. LTG Duration 02/05/20 balance [facility]dc Goal (LTG) Pt will be able to do SLS without lat deviation for 10 sec to show appropriate wt acceptance and improved balance. LTG Duration 02/05/20 strength Short Term Goal (STG) Pt will be indep with HEP. STG Duration 01/06/20 Bat Lathe Operator Goal (LTG) Pt will have equal LE strength B to allow pt return to her job and typical rec activities . LTG Duration 02/05/20 amb Short Term Goal (STG) Pt will be able to walk .5 mile without AD without greater than 2/10 pain 12/11/19 6MWT= 1175 ft using SPC in RUE. STG Duration 01/06/20 Fdc Goal (LTG) Pt will be able to hike 2 miles without AD without pain greater than 1/10. LTG Duration 02/05/20 Assessment Summary Assessment Tx focused on manual with instruction on self STMs scar and ITB with rolling pin then hip abd and core strengthening to improve proper trunk stabilization during gait. Initiated arch lift, noted pronation with improvement and self corrections during lateral band walk to reinforce with proper knee alignment and glut facilitation. Physical Therapy Plan Frequency and Duration Frequency of Treatment 1-2x/week Duration of Treatment 2 months Plan of Care Start Date 12/06/19 Plan of Care End Date 02/05/20 Therapeutic Interventions Therapeutic Interventions Aquatic Therapy,Balance Training,Gait Training,Home Exercise Program,Joint Mobilizations,Manual Therapy, Neuromuscular Re-education, Patient/Caregiver Education, Self-Care/Home Management,Soft Tissue Mobilization,Taping, Therapeutic Activities, Therapeutic Exercises Modalities Cold Pack/Ice Massage,Electric Stimulation,Hot Packs, Infrared Therapy,Iontophoresis ,Ultrasound Next Visit Focus/Plan Next Note Type Treatment Note Next Visit Plan Assess response to last txs: dynamic balance uneven surface , ankle arch lift and hip strengthening for normalizing trunk stabilityduring gait. Next tx Continue review gait qualitiy, scar mobs, core/ hip abd strengthening and stability.
--- NOTE | 2020-01-10 15:19 | PT.OTN ---
Current Diagnoses Difficulty in walking, not elsewhere classified (01/10/20) Weakness (01/10/20) Pain due to internal orthopedic prosthetic devices, implants and grafts, initial encounter (01/10/20) Physical Therapy Treatment Note PT-OP-A Visit Information Start: 12/05/19 18:30 Freq: Status: Active Protocol: Document 01/10/20 12:58 [facility] (Rec: 01/10/20 15:19 [facility] [id number]) Out-Patient Physical Therapy Visit Information Visit Information Visit Type Progress Note Visit Start Time 13:00 Visit Stop Time 13:46 Total Visit Minutes 46 Visit Number 10 Number of VP PRODUCT Visits 0 PT-OP-B Current Condition Start: 12/05/19 18:30 Freq: Status: Active Protocol: Document 12/06/19 09:53 [facility] (Rec: 12/06/19 10:36 [facility] [id number]) Current Condition History of Current Condition Onset Date 11/20/19 Current Complaints L MONIK History of Current Condition Pt had a fall and fx the nexk of her femur and had a L hemiarthroplasty and did well about 1 year after and was hiking. Recently pt had inc pain and ended up with MONIK post approach 11/20/19. Pt has felt tired since then. Pt reprots sitting on her desk chair is uncomfortable d/t the incisional angle. Pt has been very scared to go past 90 so posture in chair is poor. She has been doing small walks around the block. Achilles is hurting which she thinks may be pressure from the recliner. Pt doing her exercises daily. Pt cannot sit at her desk for 5 min. Pt is giving herself the dec except minor things. 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 Pt has 2 steps to enter but no issue. Has help 1/2 the time. Prior Treatments and Tests did not do PT after surgery Treatment Goals Patient/Caregiver Goals get back to hiking, Walk [place] park, gardening PT-OP-C Subjective Start: 12/05/19 18:30 Freq: Status: Active Protocol: Document 01/10/20 12:58 [facility] (Rec: 01/10/20 15:19 [facility] [id number]) OP-PT Subjective Patient Comments Patient Comments Pt reports knee pain is less. Bridges going better PT-OP-F Manual Assessment Start: 12/05/19 18:30 Freq: Status: Active Protocol: Document 12/06/19 09:53 [facility] (Rec: 12/06/19 11:02 [facility] [id number]) Manual Assessments Soft Tissue Assessment Soft Tissue Mobility Assessment L achilles very tender to light touch, no tenderness in calf but tightness PT-OP-G Mobility & Gait Start: 12/05/19 18:30 Freq: Status: Active Protocol: Document 12/06/19 09:53 [facility] (Rec: 12/06/19 11:05 [facility] [id number]) OP Mobility Evaluation Bed Mobility Supine to and from Sit indep OP Gait Assessment Assistive Devices Assistive Device Front Wheeled Walker Gait Deviations General Gait Pattern Antalgic,Decreased Stride Length PT-OP-M Strength Start: 12/05/19 18:30 Freq: Status: Active Protocol: Document 01/10/20 12:58 [facility] (Rec: 01/10/20 15:19 [facility] [id number]) Hip Strength Hip Manual Muscle Testing Right Flexion (L2) 5 Normal Extension (S1) 5 Normal Abduction 4+ Good+ External Rotation 5 Normal Internal Rotation 5 Normal Left Flexion (L2) 4 Good Extension (S1) 4 Good Abduction 3+ Fair+ External Rotation 4 Good Internal Rotation 5 Normal Comments IR tested in neutral; hip flex tested w/trunk leaned back & hand support PT-OP-Q Treatments Start: 12/05/19 18:30 Freq: Status: Active Protocol: Document 01/10/20 12:58 [facility] (Rec: 01/10/20 15:19 [facility] [id number]) Therapeutic Exercises Supine Exercises bridges Supine Exercise Name w/alt july-initially facilated with traction Side bilateral Reps/Minutes 15 Therapeutic Activity Therapeutic Activity reaching Name squat, hip hinge to 90 form & golfers picking tech seat position Name sitting posture-unsupported Gait Training Gait Activity wt acceptance Description SLS in mirror focus on full wt acceptancew /o lean pre gait wt shift into glut Description foward, step through Level of Assistance SBA Surface stable Distance/Duration in mirror walking Comments 1.focus on push off 2. resisted gait with dowel PT-OP-T Assessment and Plan Start: 12/05/19 18:30 Freq: Status: Active Protocol: Document 01/10/20 12:58 [facility] (Rec: 01/10/20 15:19 [facility] [id number]) Physical Therapy Assessment Goals gait Impairment lacking about 8 deg DF on L ankle Short Term Goal (STG) Pt will achieved at least 5 deg DF on LLe STG Duration achieved Senior Living Goal (LTG) Pt will be able to amb with appropriate push off without achilles or hip pain. LTG Duration achieved balance Jail Keeper Goal (LTG) Pt will be able to do SLS without lat deviation for 10 sec to show appropriate wt acceptance and improved balance. 01/09-able to do SLS for >10 with slight lat lean LTG Duration 02/05/20 strength Short Term Goal (STG) Pt will be indep with HEP. STG Duration achieved Senior Living Goal (LTG) Pt will have equal LE strength B to allow pt return to her job and typical rec activities . 01/09-improved LTG Duration 02/05/20 amb Short Term Goal (STG) Pt will be able to walk .5 mile without AD without greater than 2/10 pain 12/11/19 6MWT= 1175 ft using SPC in RUE. STG Duration achieved Senior Living Goal (LTG) Pt will be able to hike 2 miles without AD without pain greater than 1/10. 01/09-able to hike 1.5 hours LTG Duration 02/05/20 Assessment Summary Assessment Pt is making excellent progress with gait, balance and strength of L hip and core . She still has dec core stability and glute strength and requires cueingf or gait but has been able to progress back to more hiking and walking without inc pain. She would bneeift from cont PT to work on hip stability & gait Physical Therapy Plan Frequency and Duration Frequency of Treatment 1-2x/week Duration of Treatment 2 months Plan of Care Start Date 12/06/19 Plan of Care End Date 02/05/20 Next Visit Focus/Plan Next Note Type Treatment Note Next Visit Plan cont to progress gait & glute strength
--- NOTE | 2020-01-15 13:05 | PT.OTN ---
Current Diagnoses Difficulty in walking, not elsewhere classified (01/15/20) Weakness (01/15/20) Pain due to internal orthopedic prosthetic devices, implants and grafts, initial encounter (01/15/20) Physical Therapy Treatment Note PT-OP-A Visit Information Start: 12/05/19 18:30 Freq: Status: Active Protocol: Document 01/15/20 12:18 [facility] (Rec: 01/15/20 13:16 [facility] [id number]) Out-Patient Physical Therapy Visit Information Visit Information Visit Type Treatment Note Visit Start Time 12:18 Visit Stop Time 13:05 Total Visit Minutes 47 Visit Number 11 Number of GAS BRAZER Visits 1 PT-OP-B Current Condition Start: 12/05/19 18:30 Freq: Status: Active Protocol: Document 12/06/19 09:53 [facility] (Rec: 12/06/19 10:36 [facility] [id number]) Current Condition History of Current Condition Onset Date 11/20/19 Current Complaints L MONIK History of Current Condition Pt had a fall and fx the nexk of her femur and had a L hemiarthroplasty and did well about 1 year after and was hiking. Recently pt had inc pain and ended up with MONIK post approach 11/20/19. Pt has felt tired since then. Pt reprots sitting on her desk chair is uncomfortable d/t the incisional angle. Pt has been very scared to go past 90 so posture in chair is poor. She has been doing small walks around the block. Achilles is hurting which she thinks may be pressure from the recliner. Pt doing her exercises daily. Pt cannot sit at her desk for 5 min. Pt is giving herself the dec except minor things. 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 Pt has 2 steps to enter but no issue. Has help 1/2 the time. Prior Treatments and Tests did not do PT after surgery Treatment Goals Patient/Caregiver Goals get back to hiking, Walk [place] park, gardening PT-OP-C Subjective Start: 12/05/19 18:30 Freq: Status: Active Protocol: Document 01/15/20 12:18 [facility] (Rec: 01/15/20 13:16 [facility] [id number]) OP-PT Subjective Patient Comments Patient Comments Pt reports no pain in L knee now. Wasn't able to doing as much walking outdoors on trails due to smoke. Is compliant with HEP. PT-OP-F Manual Assessment Start: 12/05/19 18:30 Freq: Status: Active Protocol: Document 12/06/19 09:53 [facility] (Rec: 12/06/19 11:02 [facility] [id number]) Manual Assessments Soft Tissue Assessment Soft Tissue Mobility Assessment L achilles very tender to light touch, no tenderness in calf but tightness PT-OP-G Mobility & Gait Start: 12/05/19 18:30 Freq: Status: Active Protocol: Document 12/06/19 09:53 [facility] (Rec: 12/06/19 11:05 [facility] [id number]) OP Mobility Evaluation Bed Mobility Supine to and from Sit indep OP Gait Assessment Assistive Devices Assistive Device Front Wheeled Walker Gait Deviations General Gait Pattern Antalgic,Decreased Stride Length PT-OP-M Strength Start: 12/05/19 18:30 Freq: Status: Active Protocol: Document 01/10/20 12:58 [facility] (Rec: 01/10/20 15:19 [facility] [id number]) Hip Strength Hip Manual Muscle Testing Right Flexion (L2) 5 Normal Extension (S1) 5 Normal Abduction 4+ Good+ External Rotation 5 Normal Internal Rotation 5 Normal Left Flexion (L2) 4 Good Extension (S1) 4 Good Abduction 3+ Fair+ External Rotation 4 Good Internal Rotation 5 Normal Comments IR tested in neutral; hip flex tested w/trunk leaned back & hand support PT-OP-Q Treatments Start: 12/05/19 18:30 Freq: Status: Active Protocol: Document 01/15/20 12:18 [facility] (Rec: 01/15/20 13:16 [facility] [id number]) Therapeutic Exercises Supine Exercises Adductor/HS stretch w/ strap Side bilateral Reps/Minutes 3 x 30 sec approx 85-90 deg hip flex TA Supine Exercise Name bug: LE, UE then both together Reps/Minutes 10 Comments able to maintain LS stabilization PPT bridges Supine Exercise Name w/alt july-initially facilated with traction, then added TB over front pel Side bilateral Reps/Minutes 15 Prone Exercises bird dog Prone Exercise Name alternate UE/ LE together Reps/Minutes x8 reps Comments L pelvic anterior press facilitation level pelvis Sidelying Exercises clam shell Side bilateral Resistance Tb L1 Reps/Minutes 5 hold x10 Comments good pace, core pelvic alignment Standing Exercises sls Side bilateral Reps/Minutes 30 sec Comments cued level pelvis and hip ER awareness to assist Gait Training Gait Activity wt acceptance Description SLS in mirror focus on full wt acceptancew /o lean pre gait wt shift into glut Description foward, step through Level of Assistance SBA Surface stable Distance/Duration in mirror walking Comments 1.focus on push off 2. resisted gait with dowel PT-OP-T Assessment and Plan Start: 12/05/19 18:30 Freq: Status: Active Protocol: Document 01/15/20 12:18 [facility] (Rec: 01/15/20 13:16 [facility] [id number]) Physical Therapy Assessment Goals gait Impairment lacking about 8 deg DF on L ankle Short Term Goal (STG) Pt will achieved at least 5 deg DF on LLe STG Duration achieved Physician Scientist Goal (LTG) Pt will be able to amb with appropriate push off without achilles or hip pain. LTG Duration achieved balance Physician Scientist Goal (LTG) Pt will be able to do SLS without lat deviation for 10 sec to show appropriate wt acceptance and improved balance. 01/09-able to do SLS for >10 with slight lat lean LTG Duration 02/05/20 strength Short Term Goal (STG) Pt will be indep with HEP. STG Duration achieved Physician Scientist Goal (LTG) Pt will have equal LE strength B to allow pt return to her job and typical rec activities . 01/09-improved LTG Duration 02/05/20 amb Short Term Goal (STG) Pt will be able to walk .5 mile without AD without greater than 2/10 pain 12/11/19 6MWT= 1175 ft using SPC in RUE. STG Duration achieved Physician Scientist Goal (LTG) Pt will be able to hike 2 miles without AD without pain greater than 1/10. 01/09-able to hike 1.5 hours LTG Duration 02/05/20 Assessment Summary Assessment Tx focused on core and hip abd facilitation to allow for level pelvis and stabilization for improvement in gait. Pt still demonstrates L pelvis depression during LLE advancement improved with knee flexion cuing and arm swing. Physical Therapy Plan Frequency and Duration Frequency of Treatment 1-2x/week Duration of Treatment 2 months Plan of Care Start Date 12/06/19 Plan of Care End Date 02/05/20 Therapeutic Interventions Therapeutic Interventions Aquatic Therapy,Balance Training,Gait Training,Home Exercise Program,Joint Mobilizations,Manual Therapy, Neuromuscular Re-education, Patient/Caregiver Education, Self-Care/Home Management,Soft Tissue Mobilization,Taping, Therapeutic Activities, Therapeutic Exercises Modalities Cold Pack/Ice Massage,Electric Stimulation,Hot Packs, Infrared Therapy,Iontophoresis ,Ultrasound Next Visit Focus/Plan Next Note Type Treatment Note Next Visit Plan cont to progress gait & core/ hip abd/glute strengthening
--- NOTE | 2020-01-17 13:51 | PT.OTN ---
Current Diagnoses Difficulty in walking, not elsewhere classified (01/17/20) Weakness (01/17/20) Pain due to internal orthopedic prosthetic devices, implants and grafts, initial encounter (01/17/20) Physical Therapy Treatment Note PT-OP-A Visit Information Start: 12/05/19 18:30 Freq: Status: Active Protocol: Document 01/17/20 13:01 [facility] (Rec: 01/17/20 13:50 [facility] [id number]) Out-Patient Physical Therapy Visit Information Visit Information Visit Type Treatment Note Visit Start Time 13:00 Visit Stop Time 13:42 Total Visit Minutes 42 Visit Number 12 Number of DAYCARE PROVIDER Visits 0 PT-OP-B Current Condition Start: 12/05/19 18:30 Freq: Status: Active Protocol: Document 12/06/19 09:53 [facility] (Rec: 12/06/19 10:36 [facility] [id number]) Current Condition History of Current Condition Onset Date 11/20/19 Current Complaints L MONIK History of Current Condition Pt had a fall and fx the nexk of her femur and had a L hemiarthroplasty and did well about 1 year after and was hiking. Recently pt had inc pain and ended up with MONIK post approach 11/20/19. Pt has felt tired since then. Pt reprots sitting on her desk chair is uncomfortable d/t the incisional angle. Pt has been very scared to go past 90 so posture in chair is poor. She has been doing small walks around the block. Achilles is hurting which she thinks may be pressure from the recliner. Pt doing her exercises daily. Pt cannot sit at her desk for 5 min. Pt is giving herself the dec except minor things. 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 Pt has 2 steps to enter but no issue. Has help 1/2 the time. Prior Treatments and Tests did not do PT after surgery Treatment Goals Patient/Caregiver Goals get back to hiking, Walk [place] park, gardening PT-OP-C Subjective Start: 12/05/19 18:30 Freq: Status: Active Protocol: Document 01/17/20 13:01 [facility] (Rec: 01/17/20 13:50 [facility] [id number]) OP-PT Subjective Patient Comments Patient Comments Pt reports overall doing well. Has not done much walking d/t smoke. Compliant with HEP PT-OP-F Manual Assessment Start: 12/05/19 18:30 Freq: Status: Active Protocol: Document 12/06/19 09:53 [facility] (Rec: 12/06/19 11:02 [facility] [id number]) Manual Assessments Soft Tissue Assessment Soft Tissue Mobility Assessment L achilles very tender to light touch, no tenderness in calf but tightness PT-OP-G Mobility & Gait Start: 12/05/19 18:30 Freq: Status: Active Protocol: Document 12/06/19 09:53 [facility] (Rec: 12/06/19 11:05 [facility] [id number]) OP Mobility Evaluation Bed Mobility Supine to and from Sit indep OP Gait Assessment Assistive Devices Assistive Device Front Wheeled Walker Gait Deviations General Gait Pattern Antalgic,Decreased Stride Length PT-OP-M Strength Start: 12/05/19 18:30 Freq: Status: Active Protocol: Document 01/10/20 12:58 [facility] (Rec: 01/10/20 15:19 [facility] [id number]) Hip Strength Hip Manual Muscle Testing Right Flexion (L2) 5 Normal Extension (S1) 5 Normal Abduction 4+ Good+ External Rotation 5 Normal Internal Rotation 5 Normal Left Flexion (L2) 4 Good Extension (S1) 4 Good Abduction 3+ Fair+ External Rotation 4 Good Internal Rotation 5 Normal Comments IR tested in neutral; hip flex tested w/trunk leaned back & hand support PT-OP-Q Treatments Start: 12/05/19 18:30 Freq: Status: Active Protocol: Document 01/17/20 13:01 [facility] (Rec: 01/17/20 13:50 [facility] [id number]) Therapeutic Exercises Standing Exercises hip flexor Standing Exercise Name stretch Side bilateral Reps/Minutes 30 sec x2 Gait Training Gait Activity gait at wall Description focus on ant elevation & post depression pre gait wt shift into glut Description foward, step through Level of Assistance SBA Surface stable Distance/Duration in mirror walking Comments 1.focus on push off w/out ER Of pelvis Manual Therapy Treatment Soft Tissue Mobilization iliacus Body Location L Mobilization Type Sustained Pressure Comments w. heel slides & ER scar STMs Body Location L hip Mobilization Type Cross-Friction,Myofascial Release,Rolling Intensity/Depth Moderate Body Position Sidelying PT-OP-T Assessment and Plan Start: 12/05/19 18:30 Freq: Status: Active Protocol: Document 01/17/20 13:01 [facility] (Rec: 01/17/20 13:50 [facility] [id number]) Physical Therapy Assessment Goals gait Impairment lacking about 8 deg DF on L ankle Short Term Goal (STG) Pt will achieved at least 5 deg DF on LLe STG Duration achieved Mcfp Goal (LTG) Pt will be able to amb with appropriate push off without achilles or hip pain. LTG Duration achieved balance Scouring Pads Supervisor Goal (LTG) Pt will be able to do SLS without lat deviation for 10 sec to show appropriate wt acceptance and improved balance. 01/09-able to do SLS for >10 with slight lat lean LTG Duration 02/05/20 strength Short Term Goal (STG) Pt will be indep with HEP. STG Duration achieved Mcfp Goal (LTG) Pt will have equal LE strength B to allow pt return to her job and typical rec activities . 01/09-improved LTG Duration 02/05/20 amb Short Term Goal (STG) Pt will be able to walk .5 mile without AD without greater than 2/10 pain 12/11/19 6MWT= 1175 ft using SPC in RUE. STG Duration achieved Scouring Pads Supervisor Goal (LTG) Pt will be able to hike 2 miles without AD without pain greater than 1/10. 01/09-able to hike 1.5 hours LTG Duration 02/05/20 Assessment Summary Assessment Pt had less ant hip tightenss with push off position and improved leg swing after manual treatment. COnt dec glute activitation which may be d/t scar tightenss. Physical Therapy Plan Frequency and Duration Frequency of Treatment 1-2x/week Duration of Treatment 2 months Plan of Care Start Date 12/06/19 Plan of Care End Date 02/05/20 Next Visit Focus/Plan Next Note Type Treatment Note Next Visit Plan cont to progress gait & core/ hip abd/glute strengthening
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
--- NOTE | 2020-01-29 13:05 | PT.OTN ---
Current Diagnoses Difficulty in walking, not elsewhere classified (01/29/20) Weakness (01/29/20) Pain due to internal orthopedic prosthetic devices, implants and grafts, initial encounter (01/29/20) Physical Therapy Treatment Note PT-OP-A Visit Information Start: 12/05/19 18:30 Freq: Status: Active Protocol: Document 01/29/20 12:16 SP (Rec: 01/29/20 16:53 SP [id number]) Out-Patient Physical Therapy Visit Information Visit Information Visit Type Treatment Note Visit Start Time 12:16 Visit Stop Time 13:05 Total Visit Minutes 49 Visit Number 15 Number of SUPERVISOR BOILER REPAIR Visits 1 PT-OP-B Current Condition Start: 12/05/19 18:30 Freq: Status: Active Protocol: Document 12/06/19 09:53 LR (Rec: 12/06/19 10:36 LR [id number]) Current Condition History of Current Condition Onset Date 11/20/19 Current Complaints L MONIK History of Current Condition Pt had a fall and fx the nexk of her femur and had a L hemiarthroplasty and did well about 1 year after and was hiking. Recently pt had inc pain and ended up with MONIK post approach 11/20/19. Pt has felt tired since then. Pt reprots sitting on her desk chair is uncomfortable d/t the incisional angle. Pt has been very scared to go past 90 so posture in chair is poor. She has been doing small walks around the block. Achilles is hurting which she thinks may be pressure from the recliner. Pt doing her exercises daily. Pt cannot sit at her desk for 5 min. Pt is giving herself the of Dec except minor things. 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 Pt has 2 steps to enter but no issue. Has help 1/2 the time. Prior Treatments and Tests did not do PT after surgery Treatment Goals Patient/Caregiver Goals get back to hiking, Walk [place] park, gardening PT-OP-C Subjective Start: 12/05/19 18:30 Freq: Status: Active Protocol: Document 01/29/20 12:16 SP (Rec: 01/29/20 16:53 SP [id number]) OP-PT Subjective Patient Comments Patient Comments Pt reported L SI soreness last week and mostly dissipated. Pt feels walking more normal as is aware, able to walk [place] with incline/ declines with no problems. Pt PT-OP-F Manual Assessment Start: 12/05/19 18:30 Freq: Status: Active Protocol: Document 12/06/19 09:53 [facility] (Rec: 12/06/19 11:02 [facility] [id number]) Manual Assessments Soft Tissue Assessment Soft Tissue Mobility Assessment L achilles very tender to light touch, no tenderness in calf but tightness PT-OP-G Mobility & Gait Start: 12/05/19 18:30 Freq: Status: Active Protocol: Document 12/06/19 09:53 [facility] (Rec: 12/06/19 11:05 [facility] [id number]) OP Mobility Evaluation Bed Mobility Supine to and from Sit indep OP Gait Assessment Assistive Devices Assistive Device Front Wheeled Walker Gait Deviations General Gait Pattern Antalgic,Decreased Stride Length PT-OP-M Strength Start: 12/05/19 18:30 Freq: Status: Active Protocol: Document 01/10/20 12:58 [facility] (Rec: 01/10/20 15:19 [facility] [id number]) Hip Strength Hip Manual Muscle Testing Right Flexion (L2) 5 Normal Extension (S1) 5 Normal Abduction 4+ Good+ External Rotation 5 Normal Internal Rotation 5 Normal Left Flexion (L2) 4 Good Extension (S1) 4 Good Abduction 3+ Fair+ External Rotation 4 Good Internal Rotation 5 Normal Comments IR tested in neutral; hip flex tested w/trunk leaned back & hand support PT-OP-Q Treatments Start: 12/05/19 18:30 Freq: Status: Active Protocol: Document 01/29/20 12:16 SP (Rec: 01/29/20 16:53 SP [id number]) Cardio Equipment Bicycle (Upright) Duration (Minutes) 8 Resistance 12 x3 min> 13 Seat Position 6 Therapeutic Exercises Standing Exercises tandem walking Standing Exercise Name wt shift w/ mirror then f/b Equipment Used mirror Reps/Minutes 20 ft x3 laps Comments cued upright and lateral posture with hip ext stabilization toe off influen sls Side bilateral Reps/Minutes 30 sec Comments cued level pelvis and hip ER awareness to assist hip flexor Standing Exercise Name stretch Side bilateral Reps/Minutes 30 sec x2 Manual Therapy Treatment Soft Tissue Mobilization scar STMs Body Location L hip Mobilization Type Cross-Friction,Myofascial Release,Rolling Intensity/Depth Moderate Body Position Sidelying Joint Mobilizations hip Joint gentle R ant mob w/ER Direction PA Grade II Body Position Prone PT-OP-T Assessment and Plan Start: 12/05/19 18:30 Freq: Status: Active Protocol: Document 01/29/20 12:16 SP (Rec: 01/29/20 16:53 SP [id number]) Physical Therapy Assessment Goals gait Impairment lacking about 8 deg DF on L ankle Short Term Goal (STG) Pt will achieved at least 5 deg DF on LLe STG Duration achieved Shelter Goal (LTG) Pt will be able to amb with appropriate push off without achilles or hip pain. LTG Duration achieved balance Automatic Drilling Machine Operator Goal (LTG) Pt will be able to do SLS without lat deviation for 10 sec to show appropriate wt acceptance and improved balance. 01/09-able to do SLS for >10 with slight lat lean LTG Duration 02/05/20 strength Short Term Goal (STG) Pt will be indep with HEP. STG Duration achieved Automatic Drilling Machine Operator Goal (LTG) Pt will have equal LE strength B to allow pt return to her job and typical rec activities . 01/09-improved LTG Duration 02/05/20 amb Short Term Goal (STG) Pt will be able to walk .5 mile without AD without greater than 2/10 pain 12/11/19 6MWT= 1175 ft using SPC in RUE. STG Duration achieved Shelter Goal (LTG) Pt will be able to hike 2 miles without AD without pain greater than 1/10. 01/09-able to hike 1.5 hours LTG Duration 02/05/20 Assessment Summary Assessment Pt scar mobility improving, review self education, manual PA to assist increase mobility and ROM, carryover with hip stretching for HEP review and L hip ext dynamic stabilization. Pt improved with stability end of tx and gait level pelvis leaving. Physical Therapy Plan Frequency and Duration Frequency of Treatment 1-2x/week Duration of Treatment 2 months Plan of Care Start Date 12/06/19 Plan of Care End Date 02/05/20 Therapeutic Interventions Therapeutic Interventions Aquatic Therapy,Balance Training,Gait Training,Home Exercise Program,Joint Mobilizations,Manual Therapy, Neuromuscular Re-education, Patient/Caregiver Education, Self-Care/Home Management,Soft Tissue Mobilization,Taping, Therapeutic Activities, Therapeutic Exercises Modalities Cold Pack/Ice Massage,Electric Stimulation,Hot Packs, Infrared Therapy,Iontophoresis ,Ultrasound Next Visit Focus/Plan Next Note Type Treatment Note Next Visit Plan Assess last tx: TA, hip strenthening and gait. cont to progress gait & core/ hip abd/glute strengthening
--- NOTE | 2020-01-31 19:06 | PT.OTN ---
Current Diagnoses Difficulty in walking, not elsewhere classified (01/31/20) Weakness (01/31/20) Pain due to internal orthopedic prosthetic devices, implants and grafts, initial encounter (01/31/20) Physical Therapy Treatment Note PT-OP-A Visit Information Start: 12/05/19 18:30 Freq: Status: Active Protocol: Document 01/31/20 19:00 [facility] (Rec: 01/31/20 19:05 [facility] [id number]) Out-Patient Physical Therapy Visit Information Visit Information Visit Type Treatment Note Visit Start Time 13:01 Visit Stop Time 13:44 Total Visit Minutes 43 Visit Number 16 Number of DIGITAL SALES DIRECTOR Visits 0 PT-OP-B Current Condition Start: 12/05/19 18:30 Freq: Status: Active Protocol: Document 12/06/19 09:53 [facility] (Rec: 12/06/19 10:36 [facility] [id number]) Current Condition History of Current Condition Onset Date 11/20/19 Current Complaints L MONIK History of Current Condition Pt had a fall and fx the nexk of her femur and had a L hemiarthroplasty and did well about 1 year after and was hiking. Recently pt had inc pain and ended up with MONIK post approach 11/20/19. Pt has felt tired since then. Pt reprots sitting on her desk chair is uncomfortable d/t the incisional angle. Pt has been very scared to go past 90 so posture in chair is poor. She has been doing small walks around the block. Achilles is hurting which she thinks may be pressure from the recliner. Pt doing her exercises daily. Pt cannot sit at her desk for 5 min. Pt is giving herself the dec except minor things. 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 Pt has 2 steps to enter but no issue. Has help 1/2 the time. Prior Treatments and Tests did not do PT after surgery Treatment Goals Patient/Caregiver Goals get back to hiking, Walk [place] park, gardening PT-OP-C Subjective Start: 12/05/19 18:30 Freq: Status: Active Protocol: Document 01/31/20 19:00 [facility] (Rec: 01/31/20 19:05 [facility] [id number]) OP-PT Subjective Patient Comments Patient Comments Pt reprots she [place]iked [place] about 2.5 hours since last visit. Some cont SI discomfort Patient Reported Progress Improving PT-OP-F Manual Assessment Start: 12/05/19 18:30 Freq: Status: Active Protocol: Document 12/06/19 09:53 [facility] (Rec: 12/06/19 11:02 [facility] [id number]) Manual Assessments Soft Tissue Assessment Soft Tissue Mobility Assessment L achilles very tender to light touch, no tenderness in calf but tightness PT-OP-G Mobility & Gait Start: 12/05/19 18:30 Freq: Status: Active Protocol: Document 12/06/19 09:53 [facility] (Rec: 12/06/19 11:05 [facility] [id number]) OP Mobility Evaluation Bed Mobility Supine to and from Sit indep OP Gait Assessment Assistive Devices Assistive Device Front Wheeled Walker Gait Deviations General Gait Pattern Antalgic,Decreased Stride Length PT-OP-M Strength Start: 12/05/19 18:30 Freq: Status: Active Protocol: Document 01/10/20 12:58 [facility] (Rec: 01/10/20 15:19 [facility] [id number]) Hip Strength Hip Manual Muscle Testing Right Flexion (L2) 5 Normal Extension (S1) 5 Normal Abduction 4+ Good+ External Rotation 5 Normal Internal Rotation 5 Normal Left Flexion (L2) 4 Good Extension (S1) 4 Good Abduction 3+ Fair+ External Rotation 4 Good Internal Rotation 5 Normal Comments IR tested in neutral; hip flex tested w/trunk leaned back & hand support PT-OP-Q Treatments Start: 12/05/19 18:30 Freq: Status: Active Protocol: Document 01/31/20 19:00 [facility] (Rec: 01/31/20 19:05 [facility] [id number]) Therapeutic Exercises Sidelying Exercises AAROM hip abd Sidelying Exercise Name AROM hip abd along wall Side left Reps/Minutes 15 Gait Training Gait Activity gait at wall Description focus on ant elevation & post depression Surface level Comments alt pre gait wt shift into glut Description foward, step through Level of Assistance SBA Surface stable Distance/Duration in mirror walking Comments 1.focus on push off w/out ER Of pelvis Neuro Re-Education Treatment Other Activities PNF Details ant elevation/ post depression Comments 1. rhythmnic iniation L 2.sustained isometrics L progressed to w/LE patterns 3. concentric reversals of pelvis Self-Care/Home Management Treatment Education Other Education edu on innominate, sacral and hip anatomy PT-OP-T Assessment and Plan Start: 12/05/19 18:30 Freq: Status: Active Protocol: Document 01/31/20 19:00 [facility] (Rec: 01/31/20 19:05 [facility] [id number]) Physical Therapy Assessment Goals gait Impairment lacking about 8 deg DF on L ankle Short Term Goal (STG) Pt will achieved at least 5 deg DF on LLe STG Duration achieved Pen[facility]iary Goal (LTG) Pt will be able to amb with appropriate push off without achilles or hip pain. LTG Duration achieved balance Syrup Maker Cook Goal (LTG) Pt will be able to do SLS without lat deviation for 10 sec to show appropriate wt acceptance and improved balance. 01/09-able to do SLS for >10 with slight lat lean LTG Duration 02/05/20 strength Short Term Goal (STG) Pt will be indep with HEP. STG Duration achieved Syrup Maker Cook Goal (LTG) Pt will have equal LE strength B to allow pt return to her job and typical rec activities . 01/09-improved LTG Duration 02/05/20 amb Short Term Goal (STG) Pt will be able to walk .5 mile without AD without greater than 2/10 pain 12/11/19 6MWT= 1175 ft using SPC in RUE. STG Duration achieved Syrup Maker Cook Goal (LTG) Pt will be able to hike 2 miles without AD without pain greater than 1/10. 01/09-able to hike 1.5 hours LTG Duration 02/05/20 Assessment Summary Assessment Pt had difficulty with PNF and with hip abd along wall avoiding rotaiton of trunk. 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 Physical Therapy Plan Frequency and Duration Frequency of Treatment 1-2x/week Duration of Treatment 2 months Plan of Care Start Date 12/06/19 Plan of Care End Date 02/05/20 Next Visit Focus/Plan Next Note Type Progress Note Next Visit Plan cont to progress gait & core/ hip abd/glute strengthening, PNF for gait
--- NOTE | 2020-02-06 15:22 | PT.OTN ---
Current Diagnoses Difficulty in walking, not elsewhere classified (02/06/20) Weakness (02/06/20) Pain due to internal orthopedic prosthetic devices, implants and grafts, initial encounter (02/06/20) Physical Therapy Treatment Note PT-OP-A Visit Information Start: 12/05/19 18:30 Freq: Status: Active Protocol: Document 02/06/20 13:50 [facility] (Rec: 02/06/20 15:18 [facility] [id number]) Out-Patient Physical Therapy Visit Information Visit Information Visit Type Treatment Note Visit Start Time 13:47 Visit Stop Time 14:27 Total Visit Minutes 40 Visit Number 17 Number of RUG INSPECTOR Visits 0 PT-OP-B Current Condition Start: 12/05/19 18:30 Freq: Status: Active Protocol: Document 12/06/19 09:53 [facility] (Rec: 12/06/19 10:36 [facility] [id number]) Current Condition History of Current Condition Onset Date 11/20/19 Current Complaints L MONIK History of Current Condition Pt had a fall and fx the nexk of her femur and had a L hemiarthroplasty and did well about 1 year after and was hiking. Recently pt had inc pain and ended up with MONIK post approach 11/20/19. Pt has felt tired since then. Pt reprots sitting on her desk chair is uncomfortable d/t the incisional angle. Pt has been very scared to go past 90 so posture in chair is poor. She has been doing small walks around the block. Achilles is hurting which she thinks may be pressure from the recliner. Pt doing her exercises daily. Pt cannot sit at her desk for 5 min. Pt is giving herself the dec except minor things. 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 Pt has 2 steps to enter but no issue. Has help 1/2 the time. Prior Treatments and Tests did not do PT after surgery Treatment Goals Patient/Caregiver Goals get back to hiking, Walk [place] park, gardening PT-OP-C Subjective Start: 12/05/19 18:30 Freq: Status: Active Protocol: Document 02/06/20 13:50 [facility] (Rec: 02/06/20 15:18 [facility] [id number]) OP-PT Subjective Patient Comments Patient Comments Pt reports she is doing well. ready for dc PT-OP-F Manual Assessment Start: 12/05/19 18:30 Freq: Status: Active Protocol: Document 12/06/19 09:53 [facility] (Rec: 12/06/19 11:02 [facility] [id number]) Manual Assessments Soft Tissue Assessment Soft Tissue Mobility Assessment L achilles very tender to light touch, no tenderness in calf but tightness PT-OP-G Mobility & Gait Start: 12/05/19 18:30 Freq: Status: Active Protocol: Document 12/06/19 09:53 [facility] (Rec: 12/06/19 11:05 [facility] [id number]) OP Mobility Evaluation Bed Mobility Supine to and from Sit indep OP Gait Assessment Assistive Devices Assistive Device Front Wheeled Walker Gait Deviations General Gait Pattern Antalgic,Decreased Stride Length PT-OP-M Strength Start: 12/05/19 18:30 Freq: Status: Active Protocol: Document 02/06/20 13:50 [facility] (Rec: 02/06/20 15:18 [facility] [id number]) Hip Strength Hip Manual Muscle Testing Right Flexion (L2) 5 Normal Extension (S1) 5 Normal Abduction 4+ Good+ External Rotation 5 Normal Internal Rotation 5 Normal Left Flexion (L2) 4+ Good+ Extension (S1) 4+ Good+ Abduction 4+ Good+ External Rotation 4 Good Internal Rotation 5 Normal Comments IR tested in neutral; hip flex tested w/trunk leaned back & hand support Knee Strength Knee Manual Muscle Testing Right Flexion (S2) 5 Normal Extension (L3) 5 Normal Left Flexion (S2) 5 Normal Extension (L3) 5 Normal Ankle/Foot Strength Ankle and Foot Manual Muscle Testing Right Dorsiflexion (L4) 5 Normal Plantarflexion (S1) 5 Normal Comments stadning PF testing Left Dorsiflexion (L4) 5 Normal Plantarflexion (S1) 5 Normal PT-OP-Q Treatments Start: 12/05/19 18:30 Freq: Status: Active Protocol: Document 02/06/20 13:50 [facility] (Rec: 02/06/20 15:18 [facility] [id number]) Therapeutic Exercises Sidelying Exercises clam shell Side bilateral Resistance Lvl 2 band Reps/Minutes 2x20 Comments good pace, core pelvic alignment Standing Exercises sls Side bilateral Reps/Minutes 30 sec Comments cued level pelvis and hip ER awareness to assist hip hike Standing Exercise Name standing on 4in step Side bilateral Reps/Minutes 15 Comments focus on no lumbar ext and rotation Gait Training Gait Activity walking Comments 1.focus on push off w/out ER Of pelvis Self-Care/Home Management Treatment Education Patient Education Home Exercise Program,Posture PT-OP-T Assessment and Plan Start: 12/05/19 18:30 Freq: Status: Active Protocol: Document 02/06/20 13:50 [facility] (Rec: 02/06/20 15:18 [facility] [id number]) Physical Therapy Assessment Goals gait Impairment lacking about 8 deg DF on L ankle Short Term Goal (STG) Pt will achieved at least 5 deg DF on LLe STG Duration achieved Senior Living Goal (LTG) Pt will be able to amb with appropriate push off without achilles or hip pain. LTG Duration achieved balance Cell Tuber Machine Goal (LTG) Pt will be able to do SLS without lat deviation for 10 sec to show appropriate wt acceptance and improved balance. 01/09-able to do SLS for >10 with slight lat lean LTG Duration achieved to min lean strength Short Term Goal (STG) Pt will be indep with HEP. STG Duration achieved Senior Living Goal (LTG) Pt will have equal LE strength B to allow pt return to her job and typical rec activities . 01/09-improved LTG Duration close to equal-some dec glute strength L amb Short Term Goal (STG) Pt will be able to walk .5 mile without AD without greater than 2/10 pain 12/11/19 6MWT= 1175 ft using SPC in RUE. STG Duration achieved Senior Living Goal (LTG) Pt will be able to hike 2 miles without AD without pain greater than 1/10. 01/09-able to hike 1.5 hours LTG Duration achieved Assessment Summary Assessment Pt has met all goals and at this time is ready for dc. She only is limited with strength slightly and is to cont her HEP to work on this. She has been walking and hiking and gradually progressing distance Physical Therapy Plan Frequency and Duration Frequency of Treatment 1x/Week Duration of Treatment 1 day Plan of Care Start Date 02/06/20 Plan of Care End Date 02/06/20 Therapeutic Interventions Therapeutic Interventions Aquatic Therapy,Balance Training,Gait Training,Home Exercise Program,Joint Mobilizations,Manual Therapy, Neuromuscular Re-education, Patient/Caregiver Education, Self-Care/Home Management,Soft Tissue Mobilization,Taping, Therapeutic Activities, Therapeutic Exercises Modalities Cold Pack/Ice Massage,Electric Stimulation,Hot Packs, Infrared Therapy,Iontophoresis ,Ultrasound Discharge Physical Therapy Discharge Reasons Goals Met
--- NOTE | 2020-02-06 15:22 | PT.OPPOC ---
Physical, Occupational & Speech Therapy At [facility] Current Diagnoses Difficulty in walking, not elsewhere classified (02/06/20) Weakness (02/06/20) Pain due to internal orthopedic prosthetic devices, implants and grafts, initial encounter (02/06/20) Visit Care Team Role Provider Type Justin Le DO Primary Care Provider Physician Specialty: Family Practice Address: [address] [place] [address], [id number] Email: Francisco Robles MD Attending Provider Physician Referring Provider Specialty: Orthopedic Surgery Address: [address] [place] [address], [place], [address] Email: [email or web address] Plan Of Care PT-OP-T Assessment and Plan Start: 12/05/19 18:30 Freq: Status: Active Protocol: Document 02/06/20 13:50 [facility] (Rec: 02/06/20 15:18 [facility] [id number]) Physical Therapy Assessment Goals gait Impairment lacking about 8 deg DF on L ankle Short Term Goal (STG) Pt will achieved at least 5 deg DF on LLe STG Duration achieved Nursing Care Partner Goal (LTG) Pt will be able to amb with appropriate push off without achilles or hip pain. LTG Duration achieved balance Nursing Care Partner Goal (LTG) Pt will be able to do SLS without lat deviation for 10 sec to show appropriate wt acceptance and improved balance. 01/09-able to do SLS for >10 with slight lat lean LTG Duration achieved to min lean strength Short Term Goal (STG) Pt will be indep with HEP. STG Duration achieved Skilled Nursing Goal (LTG) Pt will have equal LE strength B to allow pt return to her job and typical rec activities . 01/09-improved LTG Duration close to equal-some dec glute strength L amb Short Term Goal (STG) Pt will be able to walk .5 mile without AD without greater than 2/10 pain 12/11/19 6MWT= 1175 ft using SPC in RUE. STG Duration achieved Skilled Nursing Goal (LTG) Pt will be able to hike 2 miles without AD without pain greater than 1/10. 01/09-able to hike 1.5 hours LTG Duration achieved Assessment Summary Assessment Pt has met all goals and at this time is ready for dc. She only is limited with strength slightly and is to cont her HEP to work on this. She has been walking and hiking and gradually progressing distance Physical Therapy Plan Frequency and Duration Frequency of Treatment 1x/Week Duration of Treatment 1 day Plan of Care Start Date 02/06/20 Plan of Care End Date 02/06/20 Therapeutic Interventions Therapeutic Interventions Aquatic Therapy,Balance Training,Gait Training,Home Exercise Program,Joint Mobilizations,Manual Therapy, Neuromuscular Re-education, Patient/Caregiver Education, Self-Care/Home Management,Soft Tissue Mobilization,Taping, Therapeutic Activities, Therapeutic Exercises Modalities Cold Pack/Ice Massage,Electric Stimulation,Hot Packs, Infrared Therapy,Iontophoresis ,Ultrasound Discharge Physical Therapy Discharge Reasons Goals Met Plan of Care Dates Plan of Care Start Date 02/06/20 Plan of Care End Date 02/06/20 Electronically Signed by: Alyssia Pizarro, PT 02/06/20 2418 Please Sign and Return: I have reviewed this Plan of Care and certify that the skilled therapy services above are required to meet the patient?s needs. Physician Signature Date Printed Name and Credentials Clinical Instructor Signature Printed Name and Credentials
== END 2020-02-19 12:37 ==
LOC: PHYS 13:45
PROVIDERS: PCP Family Medicine; Referring Provider Orthopaedic Surgery Adult Reconstructive Orthopaedic Surgery; Visit Provider Orthopaedic Surgery Adult Reconstructive Orthopaedic Surgery
DX: T84.84XA Pain due to internal orthopedic prosthetic devices, implants and grafts, initial encounter (principal); R53.1 Weakness; R26.2 Difficulty in walking, not elsewhere classified
CPT/HCPCS: 97110; 97112; 97116; 97140; 97162; 97530

== ENCOUNTER → 2022-01-12 14:08 | Outpatient (CLI) | payer MEDICARE, OTHER, SELFPAY ==
[2019-11-20 13:03] VITALS: BMI 22.8
--- NOTE | 2022-01-12 14:10 | DI.US.S_ITS ---
PROCEDURE: US PERIPH VENOUS LOW EXTREM BI INDICATIONS: PAIN TECHNIQUE: Real-time imaging, as well as color and pulse Doppler interrogation, were performed of the deep veins of both legs from the inguinal ligament to the popliteal fossa. COMPARISON: None. FINDINGS: Right: The common femoral, femoral and popliteal veins are normally compressible, and free of intraluminal thrombus. Color and pulse Doppler demonstrate normal phasic intravascular flow. There is normal augmentation response to distal compression maneuver. There is an incidentally noted patent right calf superficial varicosity. Left: The common femoral, femoral and popliteal veins are normally compressible, and free of intraluminal thrombus. Color and pulse Doppler demonstrate normal phasic intravascular flow. There is normal augmentation response to distal compression maneuver. IMPRESSION: 1. No deep vein thrombosis of the bilateral lower extremities. 2. Patent superficial right calf varicosity noted. Dictated by: Jessica Madden M.D. on 01/12/2022 at 15:10 Approved by: Jessica Madden M.D. on 01/12/2022 at 15:11
== END ==
PROVIDERS: PCP Family Medicine; Referring Provider Family Medicine; Visit Provider Family Medicine
DX: R60.0 Localized edema (principal); I83.813 Varicose veins of bilateral lower extremities with pain; I86.8 Varicose veins of other specified sites
CPT/HCPCS: 93970